=== PATIENT | female | born 1965 | race Caucasian/White ===

== ENCOUNTER → 2019-03-21 | Outpatient (REF) | payer MEDICARE ==
[2019-03-21 12:36] LABS: BASO % 0.4 % (0.0-1.0); EOS # 0.2 10^3/uL (0.0-0.50); EOS % 2.3 % (0.0-3.0); HEMATOCRIT 39.5 % (36.0-47.0); HEMOGLOBIN 12.7 g/dl (12.0-15.5); LYMPH # 2.9 10^3/uL (1.5-4.5); LYMPH % 29.8 % (24.0-44.0); MEAN CORPUSCULAR HEMOGLOBIN 28.1 pg (27.0-33.0); MEAN CORPUSCULAR HGB CONC 32.2 g/dl (32.0-36.5); MEAN CORPUSCULAR VOLUME 87.4 fl (80.0-96.0); MONO # 0.6 10^3/uL (0.0-0.8); MONO % 6.4 % (0.0-5.0); NEUTROPHILS % 60.5 % (36.0-66.0); PLATELET COUNT, AUTOMATED 269 10^3/uL (150-450); RED BLOOD COUNT 4.52 10^6/uL (4.00-5.40); WHITE BLOOD COUNT 9.9 10^3/uL (4.0-10.0)
[2019-03-21 13:15] LABS: ALBUMIN 3.4 GM/DL (3.2-5.2); ALT/SGPT 24 U/L (12-78); BILIRUBIN,TOTAL 0.1 MG/DL (0.2-1.0); BLOOD UREA NITROGEN 22 MG/DL (7-18); CALCIUM LEVEL 9.4 MG/DL (8.5-10.1); CARBON DIOXIDE LEVEL 27 MEQ/L (21-32); CHLORIDE LEVEL 107 MEQ/L (98-107); CHOLESTEROL LEVEL 81 MG/DL (<200); CHOLESTEROL RISK RATIO 2.793 (<5); CREATININE FOR GFR 0.87 MG/DL (0.55-1.30); FREE T4 1.02 NG/DL (0.76-1.46); GLOMERULAR FILTRATION RATE > 60.0 (>51); GLUCOSE, FASTING 169 MG/DL (70-100); HDL CHOLESTEROL 29 MG/DL (>40); LDL CHOLESTEROL 7 MG/DL (<100); MAGNESIUM LEVEL 2.1 MG/DL (1.8-2.4); NON-HDL-C 52 MG/DL; POTASSIUM SERUM 4.4 MEQ/L (3.5-5.1); SODIUM LEVEL 140 MEQ/L (136-145); TOTAL PROTEIN 7.4 GM/DL (6.4-8.2); TRIGLYCERIDES LEVEL 223 MG/DL (<150)
[2019-03-21 13:25] LABS: CREATININE, URINE 89.4 MG/DL; MALB URINE SIEMENS 51.6 MG/L; MAU/CREAT RATIO 57.7 MCG/MG (0.0-30.0)
[2019-03-21 14:07] LABS: HEMOGLOBIN A1c 8.7 %
== END ==
LOC: M SFHCPLAZ 08:59
PROVIDERS: ATTEND Nurse Practitioner Family
DX: E11.9 Type 2 diabetes mellitus without complications (principal); E78.5 Hyperlipidemia, unspecified; I10 Essential (primary) hypertension

== ENCOUNTER → 2019-04-17 | Outpatient (CLI) | payer MEDICARE ==
--- NOTE | 2019-04-20 15:26 | REPMRS ---
Patient History The patient states she has not had a clinical breast exam in over a year. Patient is postmenopausal. Family history of breast cancer at age 57 in sister, ovarian cancer at age 45 in sister. No Hormone Replacement Therapy 3D TOMOSYNTHESIS WAS PERFORMED. The [facility] lifetime risk for breast cancer is 16.3%. Digital Woman Screen Mammo: April 17, 2019 - Exam #: [id number] Bilateral CC and MLO view(s) were taken. Technologist: Radha Brown, Technologist Prior study comparison: August 2017, bilateral digital mammo screening bilat, performed at [facility]. FINDINGS: The breast tissue is heterogeneously dense. This may lower the sensitivity of mammography. There has been no change in the appearance of the mammogram from the prior studies. There is a moderate amount of residual fibroglandular tissue which is fairly symmetric. There is no interval development of dominant mass, areas of architectural distortion, or clustered microcalcification typical of malignancy. Assessment: BI-RADS/ACR category 1 mammogram. Negative Mammogram. Recommendation Routine screening mammogram in 1 year (for women over age 40). This mammogram was interpreted with the aid of an FDA-approved computer-aided dectection system. Electronically Signed By: Aric Crowley MD 04/20/19 [id number]
== END ==
LOC: M WHC 08:50 → EDUNIT# 09:30
PROVIDERS: ATTEND Nurse Practitioner Family
DX: Z12.31 Encounter for screening mammogram for malignant neoplasm of breast (principal); Z78.0 Asymptomatic menopausal state; Z80.3 Family history of malignant neoplasm of breast; Z80.41 Family history of malignant neoplasm of ovary

== ENCOUNTER → 2019-05-10 | Outpatient (CLI) | payer MEDICARE, MEDICAID ==
--- NOTE | 2019-05-15 09:34 | SLEEPHOME ---
DATE OF STUDY: 05/10/2019 ORDERED BY: GANGA Gold Diagnostic home sleep testing was performed due to concern for the obstructive sleep apnea syndrome. For testing, a nocturnal T3 respiratory monitoring device was used. Continuous record was made of pulse, oxygen saturation airflow, chest and abdominal strain and body. 9 hours and 59 minutes of data were reviewed. There were 8 hours and 34 minutes marked as time in bed. During the interval marked time in bed, there were 85 respiratory events identified of 10 seconds in duration or greater for a respiratory event index of 9.9. The events were primarily obstructive. Baseline pulse rate 66, pulse rate ranged 54-98. Baseline saturation 93%, saturations fell to 83%. Testing was performed in both the supine and nonsupine positions. IMPRESSION: Abnormal home sleep testing with repetitive respiratory events and oxygen desaturations to 83% with a respiratory event index of 9.9 is consistent with the obstructive sleep apnea syndrome. RECOMMENDATION: The patient should be referred for formal sleep evaluation.
== END ==
LOC: M SLEEP HO 09:44
PROVIDERS: ATTEND Nurse Practitioner Family
DX: G47.00 Insomnia, unspecified (principal)

== ENCOUNTER 2019-07-13 09:45 | Observation (INO) | payer MEDICARE, OTHER ==
[~2019-07-13] VITALS: Ht 152.4 cm; Wt 79.5 kg
[2019-07-13] MEDS ORDERED: BIMA01SOL OU (09:56)
[2019-07-13] MEDS ORDERED: METF10004 PO (09:56)
[2019-07-13] MEDS ORDERED: ELIQ5TAB PO (09:56)
[2019-07-13] MEDS ORDERED: TRES1INJ SC (09:56)
[2019-07-13] MEDS ORDERED: ATOR1TAB21 PO (09:56)
[2019-07-13] MEDS ORDERED: JARD1TAB3 PO (09:56)
[2019-07-13] MEDS ORDERED: LISI10TA4 PO (09:56)
--- NOTE | 2019-07-13 10:50 | REP ---
Portable chest, 10:38 a.m., single AP view with the the patient sitting: There are no comparisons. The lung phillips are clear. The cardiac size is normal. The dani, mediastinum, and skeletal structures are unremarkable. Impression: Negative portable chest. Electronically Signed by Aric Macias MD 07/13/2019 10:42 A
--- NOTE | 2019-07-13 10:52 | REP ---
CT of the brain without IV contrast: There are no comparisons. There is no hemorrhage. There is no edema, mass effect or midline shift. The cortical stripe is unremarkable. The ventricles are normal size and midline. The visualized paranasal sinuses and mastoids are clear. Impression: There is no hemorrhage, acute infarct or mass. Negative CT study of the brain. Electronically Signed by Aric Macias MD 07/13/2019 10:44 A
--- NOTE | 2019-07-13 11:00 | ECGEPIP ---
[facility] - ED Test Date: 2019-07-13 Pat Name: LANI WHITAKER Department: Room: - Gender: Female [employer]: JMelanie : 1965 Requested By: ZURDO Trujillo Order Number: [id number] Reading MD: Eleanor Aquino Measurements Intervals [place] Rate: 53 P: 33 SD: 127 QRS: 1 QRSD: 132 T: 39 QT: 487 QTc: 459 Interpretive Statements SINUS BRADYCARDIA RIGHT BUNDLE BRANCH BLOCK NO PRIOR Electronically Signed on 07-13-2019 11:00:07 EDT by Eleanor Aquino
[2019-07-13 11:14] LABS: BASO # 0.1 10^3/uL (0.0-0.2); BASO % 0.5 % (0.0-1.0); EOS # 0.2 10^3/uL (0.0-0.5); EOS % 1.8 % (0.0-3.0); HEMATOCRIT 42.2 % (36.0-47.0); HEMOGLOBIN 13.5 g/dl (12.0-15.5); LYMPH # 3.6 10^3/uL (1.5-5.0); LYMPH % 27.4 % (24.0-44.0); MEAN CORPUSCULAR HEMOGLOBIN 27.2 pg (27.0-33.0); MEAN CORPUSCULAR VOLUME 84.9 fl (80.0-96.0); MONO # 0.7 10^3/uL (0.0-0.8); MONO % 5.4 % (0.0-5.0); NEUTROPHILS # 8.4 10^3/uL (1.5-8.5); NEUTROPHILS % 64.4 % (36.0-66.0); PLATELET COUNT, AUTOMATED 222 10^3/uL (150-450); RED BLOOD COUNT 4.97 10^6/uL (4.00-5.40)
[2019-07-13 11:25] LABS: INR 1.25; PROTHROMBIN TIME 15.4 SECONDS (11.8-14.0)
[2019-07-13 11:26] LABS: PARTIAL THROMBOPLASTIN TIME 30.3 SECONDS (25.0-38.4)
[2019-07-13 11:45] LABS: ALBUMIN 3.6 GM/DL (3.2-5.2); ALT/SGPT 24 U/L (12-78); BILIRUBIN,DIRECT < 0.1 MG/DL (0.0-0.2); BILIRUBIN,TOTAL 0.2 MG/DL (0.2-1.0); BLOOD UREA NITROGEN 16 MG/DL (7-18); CALCIUM LEVEL 9.5 MG/DL (8.5-10.1); CARBON DIOXIDE LEVEL 28 MEQ/L (21-32); CHLORIDE LEVEL 104 MEQ/L (98-107); CK-MB VALUE MASS < 1.0 NG/ML (<3.6); CPK CREATINE PHOSPHOKINASE 39 U/L (26-192); GLOMERULAR FILTRATION RATE > 60.0 (>51); GLUCOSE, FASTING 132 MG/DL (70-100); MB/CK RELATIVE INDEX 2.56 (< OR =4); POTASSIUM SERUM 4.2 MEQ/L (3.5-5.1); SODIUM LEVEL 140 MEQ/L (136-145); TOTAL PROTEIN 7.4 GM/DL (6.4-8.2); TROPONIN I < 0.02 NG/ML (< 0.10)
[2019-07-13] MEDS ORDERED: ALEV220T22 PO (12:56)
[2019-07-13] MEDS ORDERED: SERT-138 PO (12:56)
[2019-07-13] MEDS ORDERED: RANI300T PO (12:56)
[2019-07-13] MEDS ORDERED: ZOLP10TA2 PO (12:56)
[2019-07-13] MEDS ORDERED: CLON0.5T8 PO (12:56)
[2019-07-13] MEDS ORDERED: ACETAMINOPHEN TAB 650MG DOSE (2X325MG) PO PRN (14:00)
[2019-07-13] MEDS ORDERED: GLUCOSE 4 GM CHEW TABLET PO PRN (14:00)
[2019-07-13] MEDS ORDERED: GLUCAGON FOR INJ 1 MG VIAL (J1610) SC PRN (14:00)
[2019-07-13] MEDS ORDERED: clonazePAM 0.5 MG TAB PO PRN (14:00)
[2019-07-13] MEDS ORDERED: DEXTROSE 50% 50 ML SYRINGE IV PRN (14:00)
[2019-07-13] MEDS ORDERED: MOM 30ML SUSPENSION UDC PO PRN (14:00)
--- NOTE | 2019-07-13 15:42 | REP ---
Duplex carotid sonography: History: TIA. Findings: Antegrade flow was observed in both vertebral arteries. Right carotid: The right common carotid artery is unremarkable. There is mild mixed plaquing in the bulb and proximal ICA on two-dimensional scanning. Color flow and spectral Doppler interrogation are unremarkable on the right. Velocity chart right carotid: PSV EDV Right CCA 88.0 cm/s Right ICA 75.0 16.0 Right ECA 57.0 Right ICA/CCA ratio normal 0.9. Impression: Less than 50% category narrowing in the right ICA by Doppler velocity criteria. Left carotid: The left common carotid artery shows minimal diffuse intimal thickening. There is mild mixed plaquing in the bulb and proximal ICA on two-dimensional scanning on the left side. Color flow and spectral Doppler interrogation are unremarkable on the left. Velocity chart left carotid: PSV EDV Left CCA 90.0 cm/s Left ICA 69.0 24.0 Left ECA 66.0 Left ICA/CCA ratio normal 0.8. Impression: Less than 50% category narrowing in the left ICA by Doppler velocity criteria. Electronically Signed by Babar Sullivan MD 07/13/2019 03:49 P
[2019-07-13 15:46] VITALS: BP 102/59
[2019-07-13] MEDS ORDERED: LORazepam 1 MG TAB PO STA (16:04)
--- NOTE | 2019-07-13 16:38 | HPEPDOC ---
[facility] Medical History & Physical Date of Admission Jul 13, 2019 Date of Service: Jul 13, 2019 Primary Care Physician: MAISHA BISHOP Attending Physician: АНДРЕЙ POLLARD MD History and Physical CHIEF COMPLAINT: Transient ischemic attack HISTORY OF PRESENT ILLNESS: Ashanti Mcneill is a 53 year old females who presents with weakness of the left face, arm and leg. Patient states symptoms began last week with 2 episodes while she was in the kitchen. She also states she had an additional episode last night before she came into the emergency department. Patient also had another episodes this afternoon which is classified as severe. Episodes typically last one minute with progressive decrease of symptoms overtime. She has associated headache, which she has started today. She rates headache as a 3/10 on the pain scale. The headache is located in the back of the head/cervical region. Patient also describes what seemed to be a globus sensation upon swallowing. She describes her symptoms to include dizziness, numbeness on both sides of face, weakness on the left side, tingling sensation on the left side of the body, slurred speech, forgetfulness, gait instability and right sided vision loss, which she states had been persistent from her stroke in 2009. She denies chest pain, shortness of breath, abdominal pain, nausea, vomiting, incontinence and loss of consciousness. 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 11/2015 DJD- cervical spine c5-7 11/2018 L knee- mild degenerative changes PAST SURGICAL HISTORY: Gall bladder removal 2014 SOCIAL HISTORY: Tobacco- smoked for 35 years. Smoked half a pack a day till February 2019. Smokes 2 cigarettes a day now Alcohol- None Drug use- None Caffeine- patient drinks 2 cups of coffee a day Other relevant social factors: FAMILY HISTORY: Father: 95 years, DM , heart problem, HTN Mother: 52 years, DM, heart problems, HTN Siblings: alive Children: daughter- alive 7 sisters, 1 son, 2 daughters- healthy 1 sister with ovarian cancer 1 sister with breast cancer ALLERGIES: Potassium- rashes Codiene- patient itches REVIEW OF SYSTEMS: Constitutional- Denies fever, chills and night sweats HEENT- headache but denies hearing loss, ringing sensation, Cardiovascular- denies chest pain on palpation Respiratory- denies shortness of breath or wheezing Gastrointestinal- denies nausea, vomiting, diarrhea, constipation or abdominal pain Musculoskeletal- weakness in the left side of the upper and lower extremities, Neurological- numbness and tingling sensation on the left side of the upper and lower extremities, weakness on the left side, slurring of speech and globus sensation Endocrine- denies polyuria, polydipsia, polyphagia Genirourinary- denies hematuria or dysuria Psychology- anxiety but no depression HOME MEDICATIONS: Please see below. PHYSICAL EXAMINATION: Vital signs: Temperature 97.8, pulse 52, respiratory rate 18, blood pressure 100/61, pulse oximetry 99 % on room air General- alert, oriented to person, place and time HEENT- Normacephalic, atraumatic, PERRLA, disc margins sharp, fundi without hemorrhages or exudate. External ear canals patent, TM with nonprotruding , tonsils 2 + without exudates, Neck- supple without lymphadenopathy Respiratory: thorax symmetric with good expansion, lungs clear with no rales or rhonchi, no crackles Cardiovascular- normal s1 and s2, without s3 and s3, no murmur, rubs or clicks Abdominal- no present bowel sounds, nondistended, no tenderness on palpation, soft, no masses noted Extremities- muscle strength (5/5) on right side of upper and lower extremities, muscle strength 4/5 on left side of upper and lower extremities, radial, femoral and pedal pulses are palatable bilaterallu Neurology- Normal Cranial nerves 1-12, heel to samuels test was negative. finger to nose exam was negative, reflex 2/4 bilaterally Skin- no ulcers, rashes evident on skin, LABORATORY DATA: See below. IMAGING: MICROBIOLOGY: Please see below. Assessment and plan TIA- Head CT came back negative. MRI and MRA ordered to detect any potential ischemic cause of symptoms. MRA focuses on the blood vessels with potential detection of clot formation. Neurochecks ordered Q4H to assess neurological impairment. Monitor Blood pressure. Also ordered Echocardiography and carotid ultrasound. Patient maintained on Eliquis 5 mg PO BID daily. Since patient is chronically on Eliquis, likeliness of patient having a thrombic clot low. Patient also prescribed 81 mg aspirin. Telemetry ordered. Monitor patient due to TIA/stroke symptoms as patient can go into paroxysmal atrial fibrillation with possible thrombus formation. Patient is also bradycardic. History of CVA- Residual right sided weakness and eye loss from stroke in 2009. Patient is on atorvastatin 20 mg PO daily. Will start aspirin 81mg Diabetes Mellitus type 2- Fasting glucose is 132 H. Hold home medication. Patient given 18 units of Tresiba 200 u/ml nightly along with sliding scale of insulin lispro. Anxiety/Depression- continue home medication Hypertension- continue patients home lisinopril. GERD- continue patients home ranitidine Vital Signs Vital Signs Date Time Temp Pulse Resp B/P (MAP) Pulse Ox O2 Delivery O2 Flow Rate FiO2 07/13/19 13:10 52 18 99 Room Air 07/13/19 13:00 100/61 (74) 07/13/19 09:46 97.8 Laboratory Data Labs 24H Laboratory Tests 2 07/13/19 11:01: Immature Granulocyte % (Auto) 0.5, White Blood Count 13.0H, Red Blood Count 4.97, Hemoglobin 13.5, Hematocrit 42.2, Mean Corpuscular Volume 84.9, Mean Corpuscular Hemoglobin 27.2, Mean Corpuscular Hemoglobin Concent 32.0, Red Cell Distribution Width 13.0, Platelet Count 222, Neutrophils (%) (Auto) 64.4, Lymphocytes (%) (Auto) 27.4, Monocytes (%) (Auto) 5.4H, Eosinophils (%) (Auto) 1.8, Basophils (%) (Auto) 0.5, Neutrophils # (Auto) 8.4, Lymphocytes # (Auto) 3.6, Monocytes # (Auto) 0.7, Eosinophils # (Auto) 0.2, Basophils # (Auto) 0.1, Nucleated Red Blood Cells % (auto) 0.0, Prothrombin Time 15.4H, Prothromb Time International Ratio 1.25, Activated Partial Thromboplast Time 30.3, Anion Gap 8, Glomerular Filtration Rate > 60.0, Calcium Level 9.5, Aspartate Amino Transf (AST/SGOT) 9, Alanine Aminotransferase (ALT/SGPT) 24, Alkaline Phosphatase 165H, Total Bilirubin 0.2, Direct Bilirubin < 0.1, Total Creatine Kinase 39, Creatine Kinase MB < 1.0, Creatine Kinase MB Relative Index 2.56, Troponin I < 0.02, Total Protein 7.4, Albumin 3.6, Albumin/Globulin Ratio 0.95L CBC/BMP Laboratory Tests 07/13/19 11:01 Red Blood Count 4.97, Mean Corpuscular Volume 84.9, Mean Corpuscular Hemoglobin 27.2, Mean Corpuscular Hemoglobin Concent 32.0, Red Cell Distribution Width 13.0, Neutrophils (%) (Auto) 64.4, Lymphocytes (%) (Auto) 27.4, Monocytes (%) (Auto) 5.4 H, Eosinophils (%) (Auto) 1.8, Basophils (%) (Auto) 0.5, Neutrophils # (Auto) 8.4, Lymphocytes # (Auto) 3.6, Monocytes # (Auto) 0.7, Eosinophils # (Auto) 0.2, Basophils # (Auto) 0.1 Home Medications Scheduled Apixaban (Eliquis) 5 Mg Tablet, 5 MG PO BID Atorvastatin Calcium (Atorvastatin Calcium) 20 Mg Tablet, 40 MG PO QHS Bimatoprost (Lumigan) 0.01% 2.5ML Drops, 1 DROP OU QHS Empagliflozin (Jardiance) 25 Mg Tablet, 25 MG PO DAILY Famotidine (Famotidine) 20 Mg Tablet, 40 MG PO QHS Insulin Degludec (Tresiba Flextouch U-200) 200 Unit/1 Ml Insuln.pen, 35 UNIT SC QHS Lisinopril (Lisinopril) 10 Mg Tablet, 10 MG PO DAILY Metformin HCl (Metformin HCl) 1,000 Mg Tablet, 1,000 MG PO BIDWM Sertraline HCl (Sertraline HCl) 100 Mg Tablet, 100 MG PO DAILY Scheduled PRN Clonazepam (Clonazepam) 0.5 Mg Tablet, 0.5 MG PO DAILY PRN for ANXIETY Zolpidem Tartrate (Zolpidem Tartrate) 10 Mg Tablet, 5 MG PO QHS PRN for SLEEP CAN TAKE UP TO 10MG PRN Allergies Coded Allergies: codeine (Verified Allergy, Mild, ITCH, 07/13/19) potassium (Verified Allergy, Mild, ITCH, 07/13/19) A-FIB/CHADSVASC A-FIB History Current/History of A-Fib/PAF?: No GME ATTESTATION GME ATTESTATION My faculty preceptor for this patient encounter was physically present during the encounter and was fully available. All aspects of the patient interview, examination, medical decision making process, and medical care plan development were reviewed and approved by the faculty preceptor. The faculty preceptor is aware and concurs with the plan as stated in the body of this note and will attest to such by his/her cosignature. ATTENDING NOTE I, Андрей Pollard, have independently examined this patient and performed my own physical exam, as well as reviewed the documentation and edited where necessary. I have discussed in detail with the resident / student the findings and plan of treatment as documented by the resident / student and edited their note. I agree with their findings and treatment plan and have edited their documentation. I will continue to follow the patient during this hospital stay. CLOTILDE YING Jul 13, 2019 16:38 АНДРЕЙ POLLARD MD Jul 18, 2019 17:46
[2019-07-13] MEDS ORDERED: SLF 3 ML SYR IV PRN (17:15)
[2019-07-13] MEDS: HumaLOG INSULIN (NovoLOG) PER UNIT SC SCH ×2 (17:23→21:00)
--- NOTE | 2019-07-13 17:32 | REPVR ---
PROCEDURE INFORMATION: Exam: MR Angiogram Head Without Contrast, Arteries Exam date and time: 07/13/2019 5:12 PM Clinical history: 53 years old, female; Numbness; Additional info: TIA TECHNIQUE: Imaging protocol: MR angiogram head without contrast. Exam focused on the arteries. COMPARISON: CT Head without contrast 07/13/2019 10:27 AM FINDINGS: Right internal carotid artery: Unremarkable. Intracranial segment is patent with no significant stenosis. No aneurysm. Right anterior cerebral artery: The right A1 segment is congenitally hypoplastic or absent. The remaining right anterior cerebral artery is unremarkable. Right middle cerebral artery: Unremarkable. No occlusion or significant stenosis. No aneurysm. Right posterior cerebral artery: Unremarkable. No occlusion or significant stenosis. No aneurysm. Right vertebral artery: Unremarkable. No occlusion or significant stenosis. No aneurysm. Left internal carotid artery: Unremarkable. Intracranial segment is patent with no significant stenosis. No aneurysm. Left anterior cerebral artery: Unremarkable. No occlusion or significant stenosis. No aneurysm. Left middle cerebral artery: Unremarkable. No occlusion or significant stenosis. No aneurysm. Left posterior cerebral artery: Unremarkable. No occlusion or significant stenosis. No aneurysm. Left vertebral artery: Unremarkable. No occlusion or significant stenosis. No aneurysm. Basilar artery: Unremarkable. No occlusion or significant stenosis. No aneurysm. IMPRESSION: No acute abnormality. Electronically signed by: Hilario Wolff On 07/13/2019 17:32:31 PM
--- NOTE | 2019-07-13 17:36 | REPVR ---
PROCEDURE INFORMATION: Exam: MR Head Without Contrast Exam date and time: 07/13/2019 5:12 PM Clinical history: 53 years old, female; Numbness / parasthesia; Left; Additional info: TIA TECHNIQUE: Imaging protocol: MR of the head without contrast. COMPARISON: CT Head without contrast 07/13/2019 10:27 AM The report from the previous exam was not immediately available. FINDINGS: Brain: No restricted diffusion is seen to suggest acute infarction. There is no acute intracranial hemorrhage, cerebral edema, or midline shift. Age-related cerebral and cerebellar substance loss is present. Chronic encephalomalacia is noted at the left parieto-occipital junction. Scattered increased T2 and FLAIR signal within the periventricular and subcortical white matter is present. This is nonspecific but likely related to advanced for age chronic microangiopathic ischemic change. Ventricles: There is no hydrocephalus. Incidental note is made of a 3.3 x 2.6 x 2.8 cm cyst of the vellum interpositum. Bones/joints: Unremarkable. Soft tissues: Unremarkable. Sinuses: Normal as visualized. No acute sinusitis. Mastoid air cells: Normal as visualized. No mastoid effusion. Orbits: Unremarkable. IMPRESSION: 1. No acute intracranial abnormality. 2. Chronic findings as discussed above. Electronically signed by: Hilario Wolff On 07/13/2019 17:36:19 PM
[2019-07-13 20:00] VITALS: BP 103/61
[2019-07-13] MEDS: FAMOTIDINE 20 MG TAB PO SCH (20:59)
[2019-07-13] MEDS: LEVEMIR (INSULIN DETEMIR) 1 UNITS/0.01ML SC SCH (20:59)
[2019-07-13] MEDS: DOCUSATE SODIUM 100 MG CAP PO SCH (21:00)
[2019-07-13] MEDS: APIXABAN 5 MG TAB (ELIQUIS) PO SCH (21:00)
[2019-07-13] MEDS: SLF 3 ML SYR IV SCH (21:01)
[2019-07-13 23:59] VITALS: BP 109/63
[2019-07-14 04:00] VITALS: BP 104/61
[2019-07-14 05:41] LABS: HEMATOCRIT 40.9 % (36.0-47.0); HEMOGLOBIN 12.9 g/dl (12.0-15.5); MEAN CORPUSCULAR HEMOGLOBIN 26.4 pg (27.0-33.0); MEAN CORPUSCULAR HGB CONC 31.5 g/dl (32.0-36.5); MEAN CORPUSCULAR VOLUME 83.6 fl (80.0-96.0); PLATELET COUNT, AUTOMATED 209 10^3/uL (150-450); RED BLOOD COUNT 4.89 10^6/uL (4.00-5.40); WHITE BLOOD COUNT 11.9 10^3/uL (4.0-10.0)
[2019-07-14] MEDS: SLF 3 ML SYR IV SCH ×3 (05:41→20:55)
[2019-07-14 05:58] LABS: BLOOD UREA NITROGEN 19 MG/DL (7-18); CALCIUM LEVEL 9.2 MG/DL (8.5-10.1); CARBON DIOXIDE LEVEL 27 MEQ/L (21-32); CHLORIDE LEVEL 106 MEQ/L (98-107); CREATININE FOR GFR 0.91 MG/DL (0.55-1.30); GLOMERULAR FILTRATION RATE > 60.0 (>51); GLUCOSE, FASTING 113 MG/DL (70-100); POTASSIUM SERUM 4.1 MEQ/L (3.5-5.1); SODIUM LEVEL 140 MEQ/L (136-145)
--- NOTE | 2019-07-14 06:22 | ECHO ---
DATE OF STUDY: 07/13/2019 REFERRING PHYSICIAN: Neptali Cheatham INDICATION: Transient ischemic attack (TIA). HEIGHT: 152 cm WEIGHT: 81 kg DIMENSIONS: IVS: 1.1 LV: 4.2 LVPW: 1.1 LA: 3.7 Aorta: 2.7 IVC: 1.7 Mitral E wave velocity: 114 A wave: 131 E prime septal: 5.5 E prime lateral: 7.6 FINDINGS: The study is of good technical quality. The patient is in sinus rhythm. Left ventricle is normal size and systolic function. Estimated left ventricle ejection fraction (LVEF) 60-65%. Right ventricle is also normal size and systolic function. Both atria appear normal. All four cardiac valves were reasonably well seen and appear normal. No pericardial effusion is noted. Inferior vena cava is normal size. Aortic root and aortic arch appear normal. Doppler interrogation reveals no significant aortic valvular disease. There is trace mitral and tricuspid insufficiency. Calculated pulmonary artery pressure is within normal limits. Pulmonic valve is functionally competent. Mitral inflow pattern and tissue Doppler imaging of mitral annulus reveal grade 1 diastolic dysfunction. CONCLUSIONS: 1. Study is of good technical quality. 2. Normal LV size and systolic function, grade 1 diastolic dysfunction. 3. No significant valvular disease. 4. Normal central venous pressure and likely normal pulmonary artery pressure. COMMENT: Subacute bacterial endocarditis (SBE) prophylaxis is not recommended. No obvious abnormality to explain TIA.
[2019-07-14 07:30] VITALS: BP 115/59
[2019-07-14] MEDS ORDERED: ATORVASTATIN 20 MG TAB PO SCH (09:00)
[2019-07-14] MEDS: ASPIRIN 81 MG ENTERIC TAB PO SCH (09:08)
[2019-07-14] MEDS: APIXABAN 5 MG TAB (ELIQUIS) PO SCH ×2 (09:08→20:54)
[2019-07-14] MEDS: SERTRALINE 100 MG TAB PO SCH (09:08)
[2019-07-14] MEDS: LISINOPRIL 10 MG TAB PO SCH (09:08)
[2019-07-14] MEDS: DOCUSATE SODIUM 100 MG CAP PO SCH ×2 (09:09→20:54)
[2019-07-14] MEDS: HumaLOG INSULIN (NovoLOG) PER UNIT SC SCH ×4 (09:09→20:55)
--- NOTE | 2019-07-14 09:55 | IPNPDOC ---
Subjective Date Seen The patient was seen on 07/14/19. Subjective Chief Complaint/HPI fEELS ok this am. She has history of Stroke in 2010 that involved Left occipital lobe and created a visual defect. Hx of Left Renal infarct 06/2018. Initial imaging was c/w pyelo and abscess vs infarct, but cultures were negative and was concluded that she has suffered renal infarct. Suspicion for Afib existed but not confirmed. Eliquis started at that time. Constitutional: Denies: Chills ENT: Denies: Head Aches Pulmonary: Denies: Dyspnea, Cough Cardiovascular: Denies: Chest Pain, Palpitations Gastrointestinal: Denies: Nausea, Abdominal Pain Genitourinary: Denies: Dysuria Hematologic: Denies: Bruising Musculoskeletal: Denies: Neck Pain Neurological: Denies: Weakness, Numbness (ephemeral paresthesias that brought her to ER have not recurred.) Psych: Reports: Mood Normal Objective Physical Examination General Exam: Positive: Alert, Cooperative, No Acute Distress Eye Exam: Positive: PERRLA ENT Exam: Positive: Atraumatic Neck Exam: Positive: Supple; Negative: thyromegaly Chest Exam: Positive: Clear to auscultation, Normal air movement Heart Exam: Positive: Bradycardic, Regular Rhythm Telemetry: Positive: No significant arrhythmia Abdomen Exam: Positive: Normal bowel sounds, Soft; Negative: Tenderness Extremity Exam: Negative: Clubbing, Edema Skin Exam: Negative: Rash Neuro Exam: Positive: Normal Speech, Strength at 5/5 X4 ext, Sensation Intact Psych Exam: Positive: Mental status NL Assessment /Plan Problems (1) TIA (transient ischemic attack) Status: Acute Response to Treatment: Improving Problem Specific Plan: Consult Specialist Problem Text: described recurrent left arm and face parethesias that were very brief. no recurrence since admission. Dr. Dahl has been consulted. (2) Diabetes Status: Chronic Response to Treatment: Stable Problem Text: A1c was 8.7 in March 2019.. Home regimen includes Metformin 1000mg bid, Jardiance 25mg daily, and Tresiba 35 units qhs. (3) Dyslipidemia associated with type 2 diabetes mellitus Status: Chronic Response to Treatment: Stable Problem Text: had been on lipitor 20, with this episode will increase to 40mg qhs. (4) Post traumatic stress disorder (PTSD) Status: Chronic Response to Treatment: Stable Problem Text: treatment has included sertraline 100mg daily, Klonopin 0.5mg qhs, and Zolpidem 10mg qhs prn. (5) LONNIE (obstructive sleep apnea) Status: Chronic Problem Text: She had home sleep study with AHI of 9.9 and has been referred to Pulmonary for additional eval. Not on CPAP at this time. (6) Tobacco abuse Status: Chronic Response to Treatment: Stable Problem Text: admits to 2-3 cigs/day. Lives with a smoker. Knows that she needs to quit. Plan/VTE VTE Prophylaxis Ordered?: Yes VS, I&O, 24H, Fishbone Vital Signs/I&O Vital Signs Date Time Temp Pulse Resp B/P (MAP) Pulse Ox O2 Delivery O2 Flow Rate FiO2 07/14/19 09:08 115/59 07/14/19 07:30 98.4 61 18 100 07/13/19 15:25 Room Air I&O- Last 24 Hours up to 6 AM 07/14/19 06:00 Intake Total 870 ml Output Total 0 ml Balance 870 ml Laboratory Data 24H LABS Laboratory Tests 2 07/13/19 11:01: Immature Granulocyte % (Auto) 0.5, White Blood Count 13.0H, Red Blood Count 4.97, Hemoglobin 13.5, Hematocrit 42.2, Mean Corpuscular Volume 84.9, Mean Corpuscular Hemoglobin 27.2, Mean Corpuscular Hemoglobin Concent 32.0, Red Cell Distribution Width 13.0, Platelet Count 222, Neutrophils (%) (Auto) 64.4, Lymphocytes (%) (Auto) 27.4, Monocytes (%) (Auto) 5.4H, Eosinophils (%) (Auto) 1.8, Basophils (%) (Auto) 0.5, Neutrophils # (Auto) 8.4, Lymphocytes # (Auto) 3.6, Monocytes # (Auto) 0.7, Eosinophils # (Auto) 0.2, Basophils # (Auto) 0.1, Nucleated Red Blood Cells % (auto) 0.0, Prothrombin Time 15.4H, Prothromb Time International Ratio 1.25, Activated Partial Thromboplast Time 30.3, Anion Gap 8, Glomerular Filtration Rate > 60.0, Calcium Level 9.5, Aspartate Amino Transf (AST/SGOT) 9, Alanine Aminotransferase (ALT/SGPT) 24, Alkaline Phosphatase 165H, Total Bilirubin 0.2, Direct Bilirubin < 0.1, Total Creatine Kinase 39, Creatine Kinase MB < 1.0, Creatine Kinase MB Relative Index 2.56, Troponin I < 0.02, Total Protein 7.4, Albumin 3.6, Albumin/Globulin Ratio 0.95L 07/14/19 05:10: Nucleated Red Blood Cells % (auto) 0.0, Anion Gap 7L, Glomerular Filtration Rate > 60.0, Calcium Level 9.2, Blood Urea Nitrogen 19H, Creatinine 0.91, Sodium Level 140, Potassium Level 4.1, Chloride Level 106, Carbon Dioxide Level 27 CBC/BMP Laboratory Tests 07/13/19 11:01 Red Blood Count 4.97, Mean Corpuscular Volume 84.9, Mean Corpuscular Hemoglobin 27.2, Mean Corpuscular Hemoglobin Concent 32.0, Red Cell Distribution Width 13.0, Neutrophils (%) (Auto) 64.4, Lymphocytes (%) (Auto) 27.4, Monocytes (%) (Auto) 5.4 H, Eosinophils (%) (Auto) 1.8, Basophils (%) (Auto) 0.5, Neutrophils # (Auto) 8.4, Lymphocytes # (Auto) 3.6, Monocytes # (Auto) 0.7, Eosinophils # (Auto) 0.2, Basophils # (Auto) 0.1 07/14/19 05:10 Red Blood Count 4.89, Mean Corpuscular Volume 83.6, Mean Corpuscular Hemoglobin 26.4 L, Mean Corpuscular Hemoglobin Concent 31.5 L, Red Cell Distribution Width 12.9, Calcium Level 9.2 Anuel Howard MD Jul 14, 2019 09:55
[2019-07-14 11:29] VITALS: BP 103/59
[2019-07-14 16:00] VITALS: BP 100/59
[2019-07-14] MEDS ORDERED: LIDOCAINE VISCOUS 2% SOLN 15ML UDC As Ordered ONE (17:48)
[2019-07-14] MEDS ORDERED: CETACAINE SPRAY 5GM As Ordered ONE (17:48)
[2019-07-14] MEDS ORDERED: PROPOFOL 200 MG/20 ML VIAL As Ordered ONE ×2 (18:16→18:32)
[2019-07-14] MEDS ORDERED: ONDANSETRON 4MG/2ML VIAL (J2405) IV PRN (19:00)
[2019-07-14] MEDS ORDERED: fentaNYL 100 MCG/2 ML INJECTION (J3010) IV PRN (19:00)
[2019-07-14] MEDS ORDERED: LR 1,000 ML IV SCH (19:00)
--- NOTE | 2019-07-14 19:23 | CR ---
DATE OF CONSULTATION: 07/14/2019 REFERRING PHYSICIAN: Dr. Anuel Howard REASON FOR CONSULTATION: Episodes of left-sided body numbness. HISTORY OF PRESENT ILLNESS: Ashanti Rachel is a 53-year-old woman who had left parietal and occipital ischemic stroke in 2009 when she was living in [place], [place]. She had left renal infarct and pyelonephritis with abscess, which was drained in 2018, and she was started on Eliquis in addition to her aspirin. She has been on aspirin since her ischemic stroke, and Eliquis was added in 2018. History was obtained from the patient's daughter, who was present in the room. According to the patient's daughter, she developed new symptoms a week ago. The patient moved from [place] to [place] in February 2019. She was at her baseline state of health until a week ago, when she developed left-sided facial and lip numbness and tingling, which spread to her left arm and leg. Daughter is not sure if she had any headache that day. There was no weakness. She did not notice any slurred speech, although the patient felt that her tongue was numb on the left side. She came to the emergency department yesterday, as she had a 5/10 occipital headache since 07/12/2019. Headache was radiating to her neck. Her primary care physician advised her to come to the emergency department. Yesterday, she had two more episodes of left-sided numbness when her headache was still going on. She had three total episodes in last 1 week, and they lasted anywhere between 5 seconds up to 1 or 2 minutes. There are no reports of back pains, seizures, dysphagia, dysarthria, diplopia, falls, or loss of consciousness. PAST MEDICAL HISTORY: 1. Left occipital and parietal ischemic stroke in 2009. 2. Type 2 diabetes. 3. Dyslipidemia. 4. Tobacco abuse. 5. Suspicion for glaucoma. 6. Panic attacks without agoraphobia. 7. 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 8. Colonoscopy. 9. Cervical degenerative disc disease. 10. Arthritis of left knee. 11. Cholecystectomy. 12. History of vertigo. SOCIAL HISTORY: She has smoked for 35 years, half pack per day, and since February 2019 she has cut down to three cigarettes a day. She denies alcohol or illicit drugs. FAMILY HISTORY: Both parents had diabetes, heart disease, and hypertension. One sister with ovarian cancer and other sister with breast cancer. ALLERGIES: POTASSIUM, CODEINE. REVIEW OF SYSTEMS: All systems were reviewed with the patient's daughter and were found to be noncontributory except as mentioned in history of present illness. HOME MEDICATIONS: - Eliquis 5 mg by mouth twice a day - Lipitor 20 mg by mouth daily - Jardiance 25 mg by mouth daily -lisinopril 10 mg by mouth daily - metformin 1000 mg by mouth twice a day - Zantac 300 grams by mouth at bedtime - Zoloft 100 mg by mouth daily - Klonopin 0.5 mg by mouth daily as needed - Ambien 10 mg half a tablet by mouth at bedtime as needed - lisinopril 10 mg by mouth daily - insulin Tresiba 35 units subcutaneous daily - Lumigan eyedrops one drop each eye once a day - Lipitor 20 mg by mouth daily - aspirin 81 mg by mouth daily - Eliquis 5 mg by mouth twice a day PHYSICAL EXAMINATION: Temperature 97.0, pulse 53, respiratory rate 18, blood pressure 100/59, 96% saturation on room air. HEART: Regular rate and rhythm. LUNGS: Clear to auscultation. ABDOMEN: Soft, nontender, nondistended. No pedal edema. No musculoskeletal abnormalities. No rash. No signs of meningeal irritation. The patient is awake, alert, oriented to time, place and person with normal speech. Extraocular muscles are intact. No facial weakness, and she is able to move all four extremities. Strength is 5/5 in all 4 limbs. She has normal sensations throughout. DTRs are 3+ in arms and legs. Normal bilateral cerebellar testing. Gait is normal. DIAGNOSTIC STUDIES: MRI brain reportedly showed old left parietal and occipital ischemic stroke with 3.3 cm arachnoid cyst in vellum interpositum. Scans were reviewed. MRA brain is normal, and carotid ultrasound showed less than 50% bilateral carotid artery stenosis. ASSESSMENT: 1. Possible complex migraine with occipital headache and left-sided tingling and numbness. 2. There is concern for transient ischemic attack, although it would be unusual for it to cause only sensory symptoms three times in same vascular distribution, especially when the patient is taking aspirin, Eliquis, and Lipitor. 3. Occipital neuralgia. 4. Left parietal and occipital old stroke in 2009 and left renal infarct, pyelonephritis, and abscess. PLAN: 1. Transesophageal echocardiogram. 2. We should get records from [place], [place], if they had done blood tests for coagulopathy and vasculopathy before she was put on Eliquis. Number of blood tests for these reasons currently may not be accurate was she is actively taking Eliquis, except we may be able to do genetic testing for factor V Leiden and prothrombin [id number] mutation. Check B12, B1, copper, SPEP. 3. Continue aspirin 81 mg by mouth daily, Eliquis 5 mg by mouth twice a day, and Lipitor 20 mg by mouth daily. Check with primary team if Lisinopril is the cause of chronic dry cough. 4. Follow with our office in 2-4 weeks after hospital discharge for electromyogram (EMG) nerve conduction study of left arm and leg. She can also have peripheral neuropathy with left carpal tunnel syndrome. MTDD
[2019-07-14 20:00] VITALS: BP 103/57
[2019-07-14] MEDS: FAMOTIDINE 20 MG TAB PO SCH (20:54)
[2019-07-14] MEDS: LEVEMIR (INSULIN DETEMIR) 1 UNITS/0.01ML SC SCH (20:55)
[2019-07-14] MEDS ORDERED: AMITRIPTYLINE 10 MG TAB PO SCH (21:00)
[2019-07-15] VITALS: BP 99/55
[2019-07-15 04:00] VITALS: BP 121/62
[2019-07-15] MEDS: SLF 3 ML SYR IV SCH (06:05)
[2019-07-15 06:27] LABS: HEMATOCRIT 41.8 % (36.0-47.0); HEMOGLOBIN 13.3 g/dl (12.0-15.5); MEAN CORPUSCULAR HEMOGLOBIN 26.2 pg (27.0-33.0); MEAN CORPUSCULAR HGB CONC 31.8 g/dl (32.0-36.5); MEAN CORPUSCULAR VOLUME 82.4 fl (80.0-96.0); PLATELET COUNT, AUTOMATED 221 10^3/uL (150-450); RED BLOOD COUNT 5.07 10^6/uL (4.00-5.40); WHITE BLOOD COUNT 12.2 10^3/uL (4.0-10.0)
[2019-07-15 06:51] LABS: BLOOD UREA NITROGEN 21 MG/DL (7-18); CALCIUM LEVEL 9.2 MG/DL (8.5-10.1); CARBON DIOXIDE LEVEL 28 MEQ/L (21-32); CHLORIDE LEVEL 106 MEQ/L (98-107); CREATININE FOR GFR 0.93 MG/DL (0.55-1.30); GLOMERULAR FILTRATION RATE > 60.0 (>51); GLUCOSE, FASTING 125 MG/DL (70-100); POTASSIUM SERUM 4.4 MEQ/L (3.5-5.1); SODIUM LEVEL 140 MEQ/L (136-145); TOTAL PROTEIN 7.3 GM/DL (6.4-8.2)
[2019-07-15 07:33] VITALS: BP 104/65
[2019-07-15] MEDS ORDERED: FLUBLOK(EGG FREE)(QUAD)INFLUENZA VACC 0.5ML SYRINGE (90682)18YRS&OLDER IM ONE (09:00)
[2019-07-15 09:13] VITALS: BP 104/65
[2019-07-15] MEDS: SERTRALINE 100 MG TAB PO SCH (09:13)
[2019-07-15] MEDS: DOCUSATE SODIUM 100 MG CAP PO SCH (09:13)
[2019-07-15] MEDS: ASPIRIN 81 MG ENTERIC TAB PO SCH (09:13)
[2019-07-15] MEDS: APIXABAN 5 MG TAB (ELIQUIS) PO SCH (09:13)
[2019-07-15] MEDS: LISINOPRIL 10 MG TAB PO SCH (09:13)
[2019-07-15] MEDS: HumaLOG INSULIN (NovoLOG) PER UNIT SC SCH (09:14)
[2019-07-15] MEDS ORDERED: ATOR1TAB21 PO (09:32)
[2019-07-15] MEDS ORDERED: FAMO20TA PO (09:32)
--- NOTE | 2019-07-15 10:28 | T-ECHO ---
DATE OF PROCEDURE: 07/14/2019 REFERRING PHYSICIAN: Anuel Howard MD PROCEDURE PERFORMED: Transesophageal echocardiogram with bubble study. INDICATION: Unexplained stroke. PREPROCEDURE DIAGNOSIS: Unexplained stroke. POSTPROCEDURE DIAGNOSIS: Unexplained stroke, normal transesophageal echocardiogram, bubble study negative. PROCEDURE PERFORMED BY: Jesse Ferro MD CUSTOM FRAME ASSEMBLER: None. FINDINGS: Normal transesophageal echocardiogram. Negative bubble study. INTRAVENOUS (IV) SEDATION: The patient received intravenous (IV) propofol her JD EDWARDS DEVELOPER. COMPLICATIONS: None. DESCRIPTION OF PROCEDURE: Procedure description: Rhythm was sinus. Esophageal intubation was accomplished with difficulty performed by Dr. Ferro using a [place] three-dimensional transesophageal echocardiogram probe. The left and right ventricles appeared normal in size and systolic function. The atria did not appear to be enlarged. No mass or thrombi or spontaneous echocontrast were seen within the atria or the atrial appendages. Atrial septum was intact anatomically and by color flow Doppler. A bubble study was performed times two using 2 mL of propofol mixed with 1 mL of air and 7 mL of normal saline which was transferred back and forth between two 10-mL syringes, interconnected by a 3-way stopcock. The patient was sedated to the point where she could not follow verbal commands. However, she was coughing periodically during the procedure, including during one of the bubble studies. No bubbles were seen crossing into the left side of the heart early. All the cardiac valves were structuring and functioning normal. Aortic valve was three-cuspid. Trace pulmonic regurgitation, very mild tricuspid regurgitation, and very mild mitral regurgitation were present and within physiological limits. No aortic regurgitation. No pericardial effusion. Distal aortic arch and descending thoracic aorta appeared normal. CONCLUSIONS: 1. Normal transesophageal echocardiogram. 2. Negative bubble study. [facility]
--- NOTE | 2019-07-15 16:51 | DSES ---
DATE OF ADMISSION: 07/13/2019 DATE OF DISCHARGE: 07/15/2019 Ms. Rachel was admitted from emergency department (ED) after presenting with complaint of several episodes of left neck and face tingling. She has a history of stroke involving the right parietal circulation, which occurred in 2009, involving left occipital lobe and included a visual defect. In June 2018, she suffered a left renal infarction. At that time, she did wear a Holter monitor for a week, which do not show any dysrhythmia. Dr. Dahl has requested a transesophageal echocardiogram, which was performed yesterday evening by Dr. Ferro and did not show any abnormalities, specifically no patent foramen ovale (PFO), but because of the infarction to the left occipital lobe and left renal infarction, it was presumed that there was an embolic source. Atrial fibrillation was presumed to be present or some equivalent risk factor; therefore she was placed on Eliquis at the time of her renal infarction and remains on 5 mg twice a day. The patient's chronic problems include this episode, which is interpreted as a transient ischemic attack (TIA), but could be caused by other problems, such as complex migraine or nerve entrapment at the level of her cervical spine. These differentials be pursued further by Dr. Dahl with outpatient testing. Also, diabetes mellitus type 2, a complex regimen including Tresiba insulin, Giardia is 25 daily, metformin 1000 mg twice a day; hypertension, dyslipidemia. So she has type 2 diabetes, post-traumatic stress disorder, obstructive sleep apnea. She has been referred to pulmonary for additional evaluation, but she is not continuous positive airway pressure (C-PAP) at this time. She had a home sleep study with a ApneaHypopnea Index (AHI) of 9.9 and history of chronic tobacco abuse, only smoking 2 or 3 cigarettes per day, but she lives with a smoker and acknowledges a need to quit. Pending at this time is laboratory tests ordered by Dr. Dahl, specifically plasma copper levels, factor II mutation, factor V, lupus anticoagulant. Hemoglobin was normal at 13.3 at the time of discharge, a slightly elevated white count of 12.2. Kidney function: Creatinine 0.93 and BUN 21. Serum protein electrophoresis was also pending at the time of discharge. MRI did not show any new findings, but did confirm presence of previous stroke involving left parietal occipital junction described as an area of encephalomalacia on the report. DISCHARGE DIAGNOSES: 1. Transient neurologic disturbance, transient ischemic attack (TIA) versus cervical spine nerve entrapment versus complex migraine. 2. Dyslipidemia. 3. Post-traumatic stress disorder. 4. Diabetes mellitus type 2, insulin requiring long-term use of insulin and long-term use of anticoagulation. 5. History of infarction, left kidney. PLAN: She will return home. Activity as tolerated. Diet: Carbohydrate controlled diet in light of her diabetes. MEDICATIONS AT DISCHARGE: Include: - atorvastatin 40 mg, dose increased from before - ranitidine will be stopped and substituted with famotidine 40 mg at hour of sleep - apixaban 5 mg twice a day - she will continue her eyedrops, Lumigan 0.01% drops, both eyes at bedtime. - she has been using Klonopin chronically for anxiety 0.5 mg at bedtime - zolpidem 5 mg at bedtime - sertraline 100 mg daily for anxiety - she will continue metformin 1000 mg daily - Tresiba 35 units subcutaneous daily - Giardia 25 mg daily for diabetes control. - she will resume lisinopril 10 mg a day; in hospital her pressures have been lowish, but she is asymptomatic with these low pressures - recommend that she not use naproxen sodium in the future because of known risk for increasing stroke formability FOLLOWUP: With her primary care provider (PCP) in a week and with Dr. Dahl in approximately two weeks.
[2019-07-15] MEDS ORDERED: ATORVASTATIN 20 MG TAB PO SCH (21:00)
[2019-07-17 10:11] LABS: VITAMIN B12 LEVEL 304 PG/ML (247-911)
[2019-07-18 11:24] LABS: DRVV SCREEN 48.8 SEC
[2019-07-18 11:49] LABS: PTT LUPUS TYPE ANTICOAG SCREEN 1.2 (0-1.2)
[2019-07-18 12:01] LABS: DRVV CONFIRM 55.4 SEC; LUPUS CONFIRM RATIO 1.5
[2019-07-18 12:22] LABS: NORMALIZED RATIO 0.8 (0.00-1.20)
[2019-07-18 14:27] LABS: ALBUMIN 3.77 GM/DL (3.29-5.55); ALBUMIN % 51.6 % (55.8-66.1); ALPHA-1-GLOBULIN % 5.5 % (2.9-4.9); ALPHA-2-GLOBULINS 0.97 GM/DL (0.42-0.99); ALPHA-2-GLOBULINS % 13.3 % (7.1-11.8); BETA-1-GLOBULINS 0.58 GM/DL (0.28-0.60); BETA-1-GLOBULINS % 7.9 % (4.7-7.2); BETA-2-GLOBULINS 0.61 GM/DL (0.19-0.55); BETA-2-GLOBULINS % 8.3 % (3.2-6.5); GAMMA GLOBULIN % 13.4 % (11.1-18.8); GAMMA GLOBULINS 0.98 GM/DL (0.65-1.58)
[2019-07-20 00:08] LABS: VITAMIN B1 LEVEL WHOLE BLOOD 156.4 nmol/L (66.5-200.0)
== END 2019-07-15 11:11 | disposition home or self-care (01) ==
LOC: M ED 09:45 → M ED INP 14:00 → INTOOBSV 14:00 → M PCU 15:45
PROVIDERS: ADMIT Internal Medicine; ATTEND Family Medicine
DX: G45.9 Transient cerebral ischemic attack, unspecified (principal); G43.909 Migraine, unspecified, not intractable, without status migrainosus; E78.49 Other hyperlipidemia; I10 Essential (primary) hypertension; E11.9 Type 2 diabetes mellitus without complications; Z79.4 Long term (current) use of insulin; Z79.01 Long term (current) use of anticoagulants; Z79.899 Other long term (current) drug therapy; F17.210 Nicotine dependence, cigarettes, uncomplicated; G47.30 Sleep apnea, unspecified; Z87.448 Personal history of other diseases of urinary system; F41.9 Anxiety disorder, unspecified; F43.10 Post-traumatic stress disorder, unspecified; K21.9 Gastro-esophageal reflux disease without esophagitis; Z88.5 Allergy status to narcotic agent
CPT/HCPCS: 36415; 70450; 70544; 70551; 71045; 80048; 80076; 81240; 81241; 82525; 82550; 82553; 82607; 84165; 84311; 84425; 84484; 85025; 85027; 85610; 85613; 85730; 86850; 86900; 86901; 90682; 93005; 93041; 93306; 93312; 93320; 93325; 93880; 94760; 97161; 99285; G0008; G0378

== ENCOUNTER → 2019-08-21 | Outpatient (REF) | payer MEDICARE, OTHER ==
[~2019-08-21] MED LIST: ALEV220T22 PO; ATOR1TAB21 PO; BIMA01SOL OU; CLON0.5T8 PO; ELIQ5TAB PO; FAMO20TA PO; JARD1TAB3 PO; LISI10TA4 PO; METF10004 PO; RANI300T PO; SERT-138 PO; TRES1INJ SC; ZOLP10TA2 PO
[2019-08-21 10:49] LABS: INR 0.99; PROTHROMBIN TIME 12.8 SECONDS (11.8-14.0)
[2019-08-21 10:50] LABS: PARTIAL THROMBOPLASTIN TIME 29.2 SECONDS (25.0-38.4)
[2019-08-21 11:04] LABS: HEMOGLOBIN A1c 7.8 %
[2019-08-21 11:14] LABS: ALBUMIN 3.3 GM/DL (3.2-5.2); ALT/SGPT 22 U/L (12-78); BILIRUBIN,TOTAL 0.3 MG/DL (0.2-1.0); BLOOD UREA NITROGEN 18 MG/DL (7-18); CALCIUM LEVEL 9.1 MG/DL (8.5-10.1); CARBON DIOXIDE LEVEL 28 MEQ/L (21-32); CHLORIDE LEVEL 106 MEQ/L (98-107); CHOLESTEROL LEVEL 119 MG/DL (<200); CHOLESTEROL RISK RATIO 3.606 (<5); GLOMERULAR FILTRATION RATE > 60.0 (>51); GLUCOSE, FASTING 115 MG/DL (70-100); HDL CHOLESTEROL 33 MG/DL (>40); LDL CHOLESTEROL 60 MG/DL (<100); MAGNESIUM LEVEL 2.2 MG/DL (1.8-2.4); NON-HDL-C 86 MG/DL; POTASSIUM SERUM 4.4 MEQ/L (3.5-5.1); SODIUM LEVEL 141 MEQ/L (136-145); TOTAL PROTEIN 6.9 GM/DL (6.4-8.2); TRIGLYCERIDES LEVEL 129 MG/DL (<150)
== END ==
LOC: M SFHCPLAZ 08:24
PROVIDERS: ATTEND Nurse Practitioner Family
DX: E11.9 Type 2 diabetes mellitus without complications (principal); E78.5 Hyperlipidemia, unspecified; I10 Essential (primary) hypertension; Z79.01 Long term (current) use of anticoagulants

== ENCOUNTER 2019-09-14 10:47 | Emergency (ER) | payer MEDICARE, OTHER ==
[~2019-09-14] VITALS: Ht 152.4 cm; Wt 80.9 kg
[~2019-09-14 10:47] MED LIST changes: +CLON0.5T2 PO; -CLON0.5T8 PO
[2019-09-14 12:54] LABS: BASO % 0.3 % (0.0-1.0); EOS # 0.3 10^3/uL (0.0-0.5); EOS % 2.1 % (0.0-3.0); HEMATOCRIT 42.7 % (36.0-47.0); HEMOGLOBIN 13.2 g/dl (12.0-15.5); LYMPH # 3.6 10^3/uL (1.5-5.0); LYMPH % 29.1 % (24.0-44.0); MEAN CORPUSCULAR HEMOGLOBIN 25.7 pg (27.0-33.0); MEAN CORPUSCULAR HGB CONC 30.9 g/dl (32.0-36.5); MEAN CORPUSCULAR VOLUME 83.1 fl (80.0-96.0); MONO # 0.7 10^3/uL (0.0-0.8); MONO % 5.6 % (0.0-5.0); NEUTROPHILS # 7.6 10^3/uL (1.5-8.5); NEUTROPHILS % 62.5 % (36.0-66.0); PLATELET COUNT, AUTOMATED 247 10^3/uL (150-450); RED BLOOD COUNT 5.14 10^6/uL (4.00-5.40); WHITE BLOOD COUNT 12.2 10^3/uL (4.0-10.0)
[2019-09-14 13:24] LABS: BLOOD UREA NITROGEN 15 MG/DL (7-18); CALCIUM LEVEL 9.8 MG/DL (8.5-10.1); CARBON DIOXIDE LEVEL 28 MEQ/L (21-32); CHLORIDE LEVEL 105 MEQ/L (98-107); CREATININE FOR GFR 0.87 MG/DL (0.55-1.30); GLOMERULAR FILTRATION RATE > 60.0 (>51); GLUCOSE, FASTING 126 MG/DL (70-100); POTASSIUM SERUM 3.7 MEQ/L (3.5-5.1); SODIUM LEVEL 140 MEQ/L (136-145)
[2019-09-14 13:25] LABS: ALBUMIN 3.6 GM/DL (3.2-5.2); ALT/SGPT 18 U/L (12-78); BILIRUBIN,TOTAL 0.2 MG/DL (0.2-1.0); TOTAL PROTEIN 7.5 GM/DL (6.4-8.2)
[2019-09-14] MEDS ORDERED: ISOVUE-370 76% 100ML VIAL (Q9967) As Ordered ONE (13:28)
--- NOTE | 2019-09-14 14:12 | REP ---
CT ABDOMEN AND PELVIS WITH IV BUT WITHOUT ORAL CONTRAST: HISTORY: Left flank pain. History of renal infarct. No comparison CT study. CT CONTRAST DOSE: 100 mL of intravenous Isovue 370. CT FINDINGS: Digital preliminary outreach representative radiograph is unremarkable. The lung bases are clear on axial CT images. There is mild diffuse fatty infiltration of the liver. The liver is not felt to be enlarged. No focal liver lesion is seen. The spleen is unremarkable. No adrenal lesion is observed. No pancreatic abnormality is noted. The gallbladder is surgically absent. The kidneys enhance symmetrically. There is bilateral renal cortical scarring in the lower poles. There are focal cortical deficits in the lower pole and mid pole of the left kidney, which could relate to the history of previous cortical infarct. There is a small cyst posteriorly in the right kidney 1 cm in diameter. No mass lesion is observed. Renal arteries are unremarkable and singular. Normal appendix is seen in the right lower quadrant. No retroperitoneal mass or adenopathy is seen. Small and large intestinal bowel loops are unremarkable. No abdominal wall defect is seen. The uterus is tipped to the left and there is a small fundal fibroid. The uterus is somewhat retroverted. No ovarian abnormality is observed on either side. Urinary bladder is intact. No bony destructive lesion is seen. IMPRESSION: Mild fatty infiltration of the liver. Post cholecystectomy. Bilateral lower pole renal cortical scarring. Two focal cortical defects in the left renal parenchyma may reflect prior infarcts. No hydronephrosis or renal stone disease seen. Small uterine fibroid. Normal appendix. Otherwise, negative. Electronically Signed by Babar Sullivan MD 09/14/2019 02:36 P
[2019-09-14 14:27] VITALS: BP 105/62
[2019-09-14] MEDS ORDERED: CYCLOBENZAPRINE 10 MG TAB PO ONE (15:00)
[2019-09-14] MEDS ORDERED: CYCL5TAB PO (15:26)
== END 2019-09-14 15:42 | disposition home or self-care (01) ==
LOC: M ED 10:47
DX: R10.9 Unspecified abdominal pain (principal); E11.9 Type 2 diabetes mellitus without complications; I10 Essential (primary) hypertension; F33.9 Major depressive disorder, recurrent, unspecified; F41.9 Anxiety disorder, unspecified; Z79.01 Long term (current) use of anticoagulants; Z79.899 Other long term (current) drug therapy; Z79.4 Long term (current) use of insulin; Z88.5 Allergy status to narcotic agent; Z88.8 Allergy status to other drugs, medicaments and biological substances; F17.210 Nicotine dependence, cigarettes, uncomplicated
CPT/HCPCS: 36415; 74177; 80053; 81001; 85025; 99284; Q9967

== ENCOUNTER → 2020-01-16 | Outpatient (CLI) | payer MEDICARE, MEDICAID ==
[~2020-01-16] MED LIST changes: +CYCL5TAB PO
--- NOTE | 2020-01-16 15:49 | REPPI ---
LEFT FOOT, FOUR VIEWS: Four views of the left foot were performed. There is a small calcific density at the base of the 5th middle phalanx which could represent a small avulsion fracture. No other acute fracture or dislocation is seen. There is mild posterior and inferior calcaneal spurring. There is mild joint space narrowing at the first metatarsal phalangeal joint. IMPRESSION: Possible small avulsion fracture at the base of the 5th middle phalanx. No other evidence of acute fracture or dislocation. Electronically Signed by Aric Crowley MD 01/16/2020 03:52 P
== END ==
LOC: M PLAIMG 14:36
PROVIDERS: ATTEND Physician Assistant Medical
DX: S99.922A Unspecified injury of left foot, initial encounter (principal); W22.03XA Walked into furniture, initial encounter; Y92.009 Unspecified place in unspecified non-institutional (private) residence as the place of occurrence of the external cause

== ENCOUNTER → 2020-07-18 | Outpatient (REF) | payer MEDICARE, MEDICAID ==
[2020-07-18 11:13] LABS: HEMOGLOBIN A1c 7.1 %
[2020-07-18 11:29] LABS: ALBUMIN 3.3 GM/DL (3.2-5.2); ALT/SGPT 22 U/L (12-78); BILIRUBIN,TOTAL 0.2 MG/DL (0.2-1.0); BLOOD UREA NITROGEN 15 MG/DL (7-18); CALCIUM LEVEL 9.1 MG/DL (8.5-10.1); CARBON DIOXIDE LEVEL 26 MEQ/L (21-32); CHLORIDE LEVEL 109 MEQ/L (98-107); CHOLESTEROL LEVEL 120 MG/DL (<200); CHOLESTEROL RISK RATIO 3.243 (<5); CREATININE FOR GFR 0.89 MG/DL (0.55-1.30); GLOMERULAR FILTRATION RATE > 60.0 (>51); GLUCOSE, FASTING 83 MG/DL (70-100); HDL CHOLESTEROL 37 MG/DL (>40); LDL CHOLESTEROL 48 MG/DL (<100); NON-HDL-C 83 MG/DL; POTASSIUM SERUM 4.2 MEQ/L (3.5-5.1); SODIUM LEVEL 141 MEQ/L (136-145); TOTAL PROTEIN 6.8 GM/DL (6.4-8.2); TRIGLYCERIDES LEVEL 174 MG/DL (<150)
[2020-07-18 11:42] LABS: MALB URINE SIEMENS 23.8 MG/L; MAU/CREAT RATIO 21.6 MCG/MG (0.0-30.0)
== END ==
LOC: M PLALAB 08:36
PROVIDERS: ATTEND Family Medicine
DX: E11.9 Type 2 diabetes mellitus without complications (principal); E78.5 Hyperlipidemia, unspecified

== ENCOUNTER → 2020-08-01 | Outpatient (CLI) | payer MEDICARE, MEDICAID ==
--- NOTE | 2020-08-01 17:29 | REPMRS ---
Patient History The patient states she has not had a clinical breast exam in over a year. Family history of breast cancer at age 57 in sister, ovarian cancer at age 45 in sister. No Hormone Replacement Therapy 3D TOMOSYNTHESIS WAS PERFORMED. [facility] lifetime risk for breast cancer is 15.9%. Volpara breast density c. Digital Woman Screen Mammo: August 01, 2020 - Exam #: [id number] Bilateral CC and MLO view(s) were taken. Technologist: Radha Brown, Technologist Prior study comparison: April 17, 2019, bilateral digital woman screen mammo performed at [facility]. August 2017, bilateral digital mammo screening bilat, performed at [facility]. FINDINGS: The breast tissue is heterogeneously dense. This may lower the sensitivity of mammography. There has been no change in the appearance of the mammogram from the prior studies. There is a moderate amount of residual fibroglandular tissue which is fairly symmetric. There is no interval development of dominant mass, areas of architectural distortion, or clustered microcalcification typical of malignancy. Assessment: BI-RADS/ACR category 1 mammogram. Negative Mammogram. Recommendation Routine screening mammogram in 1 year (for women over age 40). This mammogram was interpreted with the aid of an FDA-approved computer-aided dectection system. Electronically Signed By: Aric Crowley MD 08/01/20 [id number]
== END ==
LOC: M WHC 14:59
PROVIDERS: ATTEND Nurse Practitioner Family
DX: Z12.31 Encounter for screening mammogram for malignant neoplasm of breast (principal); Z80.3 Family history of malignant neoplasm of breast

== ENCOUNTER → 2020-11-28 | Outpatient (REF) | payer MEDICARE, MEDICAID ==
[~2020-11-28] MED LIST changes: +LISI10TA22 PO; -LISI10TA4 PO
[2020-11-28 11:22] LABS: HEMOGLOBIN A1c 7.3 %
[2020-11-28 11:31] LABS: ALBUMIN 3.5 GM/DL (3.2-5.2); ALT/SGPT 25 U/L (12-78); BILIRUBIN,TOTAL 0.1 MG/DL (0.2-1.0); BLOOD UREA NITROGEN 20 MG/DL (7-18); CALCIUM LEVEL 9.1 MG/DL (8.5-10.1); CARBON DIOXIDE LEVEL 28 MEQ/L (21-32); CHLORIDE LEVEL 109 MEQ/L (98-107); CHOLESTEROL LEVEL 132 MG/DL (<200); CHOLESTEROL RISK RATIO 3.771 (<5); CREATININE FOR GFR 0.93 MG/DL (0.55-1.30); GLOMERULAR FILTRATION RATE > 60.0 (>51); GLUCOSE, FASTING 113 MG/DL (70-100); HDL CHOLESTEROL 35 MG/DL (>40); LDL CHOLESTEROL 46 MG/DL (<100); NON-HDL-C 97 MG/DL; POTASSIUM SERUM 4.2 MEQ/L (3.5-5.1); SODIUM LEVEL 144 MEQ/L (136-145); TOTAL PROTEIN 7.1 GM/DL (6.4-8.2); TRIGLYCERIDES LEVEL 256 MG/DL (<150)
== END ==
LOC: M PLALAB 08:41
PROVIDERS: ATTEND Nurse Practitioner Family
DX: E78.5 Hyperlipidemia, unspecified (principal); E11.9 Type 2 diabetes mellitus without complications

== ENCOUNTER → 2020-12-06 | Outpatient (CLI) | payer MEDICARE, MEDICAID ==
--- NOTE | 2020-12-06 11:58 | REPPI ---
INDICATION: M25.512 LEFT SHOULDER PAIN COMPARISON: None. TECHNIQUE: Internal rotation, external rotation, and Y view. FINDINGS: Cortical irregularity and subtle spurring at the acromioclavicular joint. Possible old healed clavicle shaft fracture. Subacromial space is normal. Glenohumeral joint is normal. No periarticular calcifications or loose bodies are identified. IMPRESSION: Mild age-related degenerative changes at the acromioclavicular joint. <Electronically signed by Mahendra Kim > 12/06/20 [id number]
== END ==
LOC: M PLAIMG 11:33
PROVIDERS: ATTEND Nurse Practitioner Family
DX: M19.012 Primary osteoarthritis, left shoulder (principal); M25.512 Pain in left shoulder
CPT/HCPCS: 73030; G0463

== ENCOUNTER → 2021-02-03 | Outpatient (CLI) | payer MEDICARE, MEDICAID ==
--- NOTE | 2021-02-03 20:59 | REPPI ---
INDICATION: G56.20 ULNAR NEUROPATHY COMPARISON: None. TECHNIQUE: AP, lateral, bilateral oblique views left wrist. FINDINGS: The osseous structures, joint spaces, and surrounding soft tissues are essentially age-appropriate. No acute or healed injury is identified. No overt arthritic changes are appreciated. IMPRESSION: Essentially age-appropriate wrist radiograph series. <Electronically signed by Mahendra Kim > 02/03/21 [id number]
--- NOTE | 2021-02-03 21:02 | REPPI ---
INDICATION: G56.20 ULNAR NEUROPATHY COMPARISON: None. TECHNIQUE: AP, lateral, bilateral oblique views of the left elbow. FINDINGS: There is no evidence for acute fracture or dislocation. No evidence for effusion. Cortical irregularity along the medial humeral condyle suggesting mild chronic change. Joint spaces are otherwise normal. Surrounding soft tissues are unremarkable. No periarticular calcifications or loose bodies are identified. IMPRESSION: Mild age-related changes. <Electronically signed by Mahendra Kim > 02/03/21 0636
== END ==
LOC: M PLAIMG 14:18
PROVIDERS: ATTEND Nurse Practitioner Family
DX: G56.20 Lesion of ulnar nerve, unspecified upper limb (principal)
CPT/HCPCS: 73080; 73110; G0463

== ENCOUNTER → 2021-02-23 | Outpatient (CLI) | payer MEDICARE, MEDICAID ==
--- NOTE | 2021-02-23 11:16 | REP ---
INDICATION: ULNAR NEUROPATHY. Patient reports pain in the elbow starting 3 weeks ago with limited range of motion. COMPARISON: Comparison radiographs of the left elbow are from February 03, 2021.. TECHNIQUE: Left elbow MRI is acquired with axial, coronal, and sagittal imaging planes included with without fat saturation. FINDINGS: Cortical and medullary bone signal intensity is normal. There is no evidence of occult fracture or bony lesion. The radiographs demonstrate mild coronoid process spurring. There is also medial and lateral epicondylar spurring visible on the radiographs. This is visible although less conspicuously on MR. No joint effusion or juxta-articular cyst is seen. Triceps, biceps, and brachialis tendons have an unremarkable appearance. Medial and lateral collateral ligaments are intact. T2 weighted scans show no evidence of soft tissue edema adjacent to the medial or lateral epicondyle. There is no evidence of accessory muscle or soft tissue mass or cyst along the distribution of the ulnar nerve. Study is otherwise unremarkable. IMPRESSION: Mild coronoid process and epicondylar spurring. Otherwise negative. <Electronically signed by Frantz Sullivan > 02/23/21 0901
--- NOTE | 2021-02-23 12:16 | REP ---
INDICATION: ULNAR NEUROPATHY. Numbness and pain in the wrist for 3 weeks. COMPARISON: Comparison wrist radiographs February 03, 2021.. TECHNIQUE: Axial, sagittal, and coronal imaging planes utilized. T1 and T2 weighted scans are obtained in the usual fashion with without fat saturation. FINDINGS: Cortical and medullary bone signal intensity are normal in the distal radius, distal ulna, carpals bones, and metacarpal bones. There is mild osteoarthritic spurring at the 1st carpometacarpal articulation. Triangular fibrocartilage appears intact. No joint effusion or juxta-articular cyst is seen. The distal radioulnar articulation appears intact. Carpal tunnel and contents are unremarkable. There is no evidence of compression or entrapment in the distribution of the ulnar nerve through Guyon's canal. No cyst or mass is seen. There is no evidence of flexor or extensor tendinopathy. IMPRESSION: Mild spurring at the 1st carpometacarpal articulation. Otherwise unremarkable MRI study of the left wrist. <Electronically signed by Frantz Sullivan > 02/23/21 [id number]
== END ==
LOC: M RAD 09:54
PROVIDERS: ATTEND Nurse Practitioner Family
DX: G56.20 Lesion of ulnar nerve, unspecified upper limb (principal)

== ENCOUNTER → 2021-04-09 | Outpatient (CLI) | payer MEDICARE, MEDICAID ==
[2021-04-09 13:50] LABS: BASO % 0.3 % (0.0-1.0); EOS # 0.2 10^3/uL (0.0-0.5); EOS % 1.9 % (0.0-3.0); HEMATOCRIT 41.9 % (36.0-47.0); HEMOGLOBIN 13.1 g/dl (12.0-15.5); LYMPH # 2.9 10^3/uL (1.5-5.0); LYMPH % 22.4 % (24.0-44.0); MEAN CORPUSCULAR HEMOGLOBIN 26.4 pg (27.0-33.0); MEAN CORPUSCULAR HGB CONC 31.3 g/dl (32.0-36.5); MEAN CORPUSCULAR VOLUME 84.5 fl (80.0-96.0); MONO # 0.7 10^3/uL (0.0-0.8); MONO % 5.7 % (2.0-8.0); NEUTROPHILS # 8.8 10^3/uL (1.5-8.5); NEUTROPHILS % 68.9 % (36.0-66.0); PLATELET COUNT, AUTOMATED 228 10^3/uL (150-450); RED BLOOD COUNT 4.96 10^6/uL (4.00-5.40); WHITE BLOOD COUNT 12.7 10^3/uL (4.0-10.0)
[2021-04-09 14:20] LABS: CREATININE, URINE 72.1 MG/DL; MALB URINE SIEMENS 22.1 MG/L; MAU/CREAT RATIO 30.6 MCG/MG (0.0-30.0)
[2021-04-09 14:35] LABS: ALBUMIN 3.4 GM/DL (3.2-5.2); ALT/SGPT 33 U/L (12-78); BILIRUBIN,TOTAL 0.2 MG/DL (0.2-1.0); BLOOD UREA NITROGEN 19 MG/DL (7-18); CALCIUM LEVEL 9.3 MG/DL (8.5-10.1); CARBON DIOXIDE LEVEL 28 MEQ/L (21-32); CHLORIDE LEVEL 107 MEQ/L (98-107); CHOLESTEROL LEVEL 130 MG/DL (<200); CHOLESTEROL RISK RATIO 4.193 (<5); CREATININE FOR GFR 0.93 MG/DL (0.55-1.30); FREE T4 0.96 NG/DL (0.76-1.46); GLOMERULAR FILTRATION RATE > 60.0 (>51); GLUCOSE, FASTING 146 MG/DL (70-100); HDL CHOLESTEROL 31 MG/DL (>40); LDL CHOLESTEROL 36 MG/DL (<100); NON-HDL-C 99 MG/DL; POTASSIUM SERUM 4.3 MEQ/L (3.5-5.1); SODIUM LEVEL 141 MEQ/L (136-145); TOTAL PROTEIN 6.9 GM/DL (6.4-8.2); TRIGLYCERIDES LEVEL 313 MG/DL (<150)
== END ==
LOC: M PLALAB 10:00
PROVIDERS: ATTEND Nurse Practitioner Family
DX: I10 Essential (primary) hypertension (principal)

== ENCOUNTER → 2021-06-26 | Outpatient (REF) | payer MEDICARE, MEDICAID | LOC: M SFHCWAGY 13:32 | PROVIDERS: ATTEND Advanced Practice Midwife | DX: Z12.4 Encounter for screening for malignant neoplasm of cervix (principal) | CPT/HCPCS: 87624; G0123; G0463 ==

== ENCOUNTER → 2021-08-04 | Outpatient (CLI) | payer MEDICARE, MEDICAID ==
--- NOTE | 2021-08-04 10:04 | REPMRS ---
Patient History The patient states she had a clinical breast exam 06/26/21. Family history of breast cancer at age 57 in sister, ovarian cancer at age 45 in sister. No Hormone Replacement Therapy Tomosynthesis is performed. Volpara breast density is b. [facility] lifetime risk of breast cancer 15.5%. Digital Woman Screen Mammo: August 04, 2021 - Exam #: [id number] Bilateral CC and MLO view(s) were taken. Technologist: Dennise Hilton, Bag Repairer Prior study comparison: August 01, 2020, bilateral digital woman screen mammo performed at [facility]. April 17, 2019, bilateral digital woman screen mammo performed at [facility]. FINDINGS: The breast tissue is heterogeneously dense. This may lower the sensitivity of mammography. There has been no change in the appearance of the mammogram from the prior studies. There is a moderate amount of residual fibroglandular tissue which is fairly symmetric. There is no interval development of dominant mass, areas of architectural distortion, or clustered microcalcification typical of malignancy. Assessment: BI-RADS/ACR category 1 mammogram. Negative Mammogram. Recommendation Routine screening mammogram in 1 year (for women over age 40). This mammogram was interpreted with the aid of an FDA-approved computer-aided dectection system. Electronically Signed By: Aric Crowley MD 08/04/21 [id number]
== END ==
LOC: M WHC 09:08
PROVIDERS: ATTEND Advanced Practice Midwife
DX: Z12.31 Encounter for screening mammogram for malignant neoplasm of breast (principal)

== ENCOUNTER → 2021-08-06 | Outpatient (CLI) | payer MEDICARE, MEDICAID ==
--- NOTE | 2021-08-06 15:42 | REP ---
INDICATION: PELVIC PAIN. COMPARISON: None. TECHNIQUE: Transabdominal and transvaginal scanning performed. FINDINGS: Uterine dimensions are 6.4 x 3.7 x 4.4 cm. Endometrial echo is 5 mm in AP dimension and centrally placed. The uterus is retroflexed. There is a fundal fibroid measuring 2.3 x 2.4 x 2.2 cm. The bladder measures 5.4 x 3.9 x 6.6cm. The right ovary has dimensions of 1.0 x 2.3 x 2.5 cm. It's Doppler flow is normal with a resistive index of 0.56. The left ovary could not be visualized. There is no adnexal mass identified. No free fluid is seen in the cul-de-sac. IMPRESSION: Retroflexed uterus, endometrial thickness 5 mm. Fundal fibroid with maximum diameter 2.4 cm. Normal appearing right ovary. Left ovary could not be visualized. No evidence of adnexal mass or free fluid. <Electronically signed by Aric Crowley > 08/06/21 [id number]
== END ==
LOC: M WHC 10:16
PROVIDERS: ATTEND Advanced Practice Midwife
DX: R10.2 Pelvic and perineal pain (principal)

== ENCOUNTER 2021-11-13 23:16 | Emergency (ER) | payer MEDICARE, MEDICAID ==
[~2021-11-13] VITALS: Ht 152.4 cm; Wt 81.4 kg
[2021-11-13] MEDS ORDERED: NS 1,000 ML IV ONE (23:30)
[2021-11-13] MEDS ORDERED: KETOROLAC 30 MG/ML 1ML VIAL IV ONE (23:30)
[2021-11-13] MEDS ORDERED: ONDANSETRON 4MG/2ML VIAL IV ONE (23:30)
[2021-11-14 00:02] LABS: BILIRUBIN, URINE MANUAL NEGATIVE (NEGATIVE); GLUCOSE, URINE (UA) MANUAL 4+(1000 MG/DL) mg/dL (NEGATIVE); KETONE, URINE MANUAL NEGATIVE (NEGATIVE); UROBILINOGEN, URINE MANUAL NORMAL (NORMAL)
[2021-11-14 00:09] LABS: BASO # 0.1 10^3/uL (0.0-0.2); BASO % 0.3 % (0.0-1.0); EOS # 0.2 10^3/uL (0.0-0.5); EOS % 1.5 % (0.0-3.0); HEMATOCRIT 43.5 % (36.0-47.0); HEMOGLOBIN 14.1 g/dl (12.0-15.5); LYMPH # 4.4 10^3/uL (1.5-5.0); LYMPH % 29.9 % (24.0-44.0); MEAN CORPUSCULAR HEMOGLOBIN 27.3 pg (27.0-33.0); MEAN CORPUSCULAR HGB CONC 32.4 g/dl (32.0-36.5); MEAN CORPUSCULAR VOLUME 84.3 fl (80.0-96.0); MONO # 0.7 10^3/uL (0.0-0.8); MONO % 4.8 % (2.0-8.0); NEUTROPHILS # 9.3 10^3/uL (1.5-8.5); NEUTROPHILS % 62.7 % (36.0-66.0); PLATELET COUNT, AUTOMATED 295 10^3/uL (150-450); RED BLOOD COUNT 5.16 10^6/uL (4.00-5.40); WHITE BLOOD COUNT 14.9 10^3/uL (4.0-10.0)
[2021-11-14 00:26] LABS: ALBUMIN 3.8 GM/DL (3.2-5.2); BILIRUBIN,TOTAL 0.2 MG/DL (0.2-1.0); CALCIUM LEVEL 9.7 MG/DL (8.5-10.1); CREATININE FOR GFR 1.19 MG/DL (0.55-1.30); GLOMERULAR FILTRATION RATE 50.1 (>51); TOTAL PROTEIN 7.7 GM/DL (6.4-8.2)
[2021-11-14] MEDS ORDERED: ISOVUE-370 76% 100ML VIAL As Ordered ONE (01:08)
[2021-11-14 04:30] VITALS: BP 101/62
== END 2021-11-14 04:49 | disposition home or self-care (01) ==
LOC: M ED 23:16
DX: R10.9 Unspecified abdominal pain (principal); E11.9 Type 2 diabetes mellitus without complications; E78.5 Hyperlipidemia, unspecified; F17.200 Nicotine dependence, unspecified, uncomplicated; Z79.01 Long term (current) use of anticoagulants; Z79.4 Long term (current) use of insulin; Z88.6 Allergy status to analgesic agent
CPT/HCPCS: 74177; 80053; 85025; 93005; 96361; 96374; 96375; 99284; J1885; J2405; Q9967

== ENCOUNTER → 2022-01-06 | Outpatient (CLI) | payer MEDICARE, MEDICAID ==
[2022-01-06 12:17] LABS: HEMOGLOBIN A1c 6.7 %
[2022-01-06 12:31] LABS: ALBUMIN 3.3 GM/DL (3.2-5.2); ALT/SGPT 22 U/L (12-78); BILIRUBIN,TOTAL 0.2 MG/DL (0.2-1.0); BLOOD UREA NITROGEN 15 MG/DL (7-18); CALCIUM LEVEL 9.5 MG/DL (8.5-10.1); CARBON DIOXIDE LEVEL 30 MEQ/L (21-32); CHLORIDE LEVEL 109 MEQ/L (98-107); CHOLESTEROL LEVEL 117 MG/DL (<200); CHOLESTEROL RISK RATIO 3.441 (<5); CREATININE FOR GFR 0.97 MG/DL (0.55-1.30); GLOMERULAR FILTRATION RATE > 60.0 (>51); GLUCOSE, FASTING 91 MG/DL (70-100); HDL CHOLESTEROL 34 MG/DL (>40); LDL CHOLESTEROL 18 MG/DL (<100); NON-HDL-C 83 MG/DL; POTASSIUM SERUM 4.2 MEQ/L (3.5-5.1); SODIUM LEVEL 142 MEQ/L (136-145); TOTAL PROTEIN 6.8 GM/DL (6.4-8.2); TRIGLYCERIDES LEVEL 323 MG/DL (<150)
[2022-01-06 12:40] LABS: CREATININE, URINE 73.6 MG/DL; MALB URINE SIEMENS 13.7 MG/L; MAU/CREAT RATIO 18.6 MCG/MG (0.0-30.0)
== END ==
LOC: M PLALAB 08:08
PROVIDERS: ATTEND Nurse Practitioner Family
DX: E78.5 Hyperlipidemia, unspecified (principal); E11.9 Type 2 diabetes mellitus without complications

== ENCOUNTER → 2022-05-22 | Outpatient (CLI) | payer MEDICARE, MEDICAID ==
[2022-05-22 13:56] LABS: BASO % 0.3 % (0.0-1.0); EOS # 0.2 10^3/uL (0.0-0.5); EOS % 1.4 % (0.0-3.0); HEMATOCRIT 39.5 % (36.0-47.0); LYMPH # 3.6 10^3/uL (1.5-5.0); LYMPH % 25.9 % (24.0-44.0); MEAN CORPUSCULAR HEMOGLOBIN 28.3 pg (27.0-33.0); MEAN CORPUSCULAR HGB CONC 32.9 g/dl (32.0-36.5); MEAN CORPUSCULAR VOLUME 86.1 fl (80.0-96.0); MONO # 0.6 10^3/uL (0.0-0.8); MONO % 4.1 % (2.0-8.0); NEUTROPHILS # 9.3 10^3/uL (1.5-8.5); NEUTROPHILS % 67.7 % (36.0-66.0); PLATELET COUNT, AUTOMATED 252 10^3/uL (150-450); RED BLOOD COUNT 4.59 10^6/uL (4.00-5.40); WHITE BLOOD COUNT 13.7 10^3/uL (4.0-10.0)
[2022-05-22 14:31] LABS: HEMOGLOBIN A1c 6.9 %
[2022-05-22 14:41] LABS: ALBUMIN 3.8 GM/DL (3.2-5.2); ALT/SGPT 35 U/L (12-78); BILIRUBIN,TOTAL 0.2 MG/DL (0.2-1.0); BLOOD UREA NITROGEN 9 MG/DL (7-18); CALCIUM LEVEL 9.6 MG/DL (8.5-10.1); CARBON DIOXIDE LEVEL 26 MEQ/L (21-32); CHLORIDE LEVEL 105 MEQ/L (98-107); CHOLESTEROL LEVEL 119 MG/DL (<200); CHOLESTEROL RISK RATIO 2.767 (<5); CREATININE FOR GFR 0.98 MG/DL (0.55-1.30); GLOMERULAR FILTRATION RATE > 60.0 (>51); GLUCOSE, FASTING 105 MG/DL (70-100); HDL CHOLESTEROL 43 MG/DL (>40); LDL CHOLESTEROL 26 MG/DL (<100); NON-HDL-C 76 MG/DL; POTASSIUM SERUM 3.9 MEQ/L (3.5-5.1); SODIUM LEVEL 137 MEQ/L (136-145); TOTAL PROTEIN 7.2 GM/DL (6.4-8.2); TRIGLYCERIDES LEVEL 252 MG/DL (<150)
[2022-05-22 14:42] LABS: FREE T4 0.97 NG/DL (0.76-1.46)
[2022-05-22 14:44] LABS: CREATININE, URINE 74.9 MG/DL; MALB URINE SIEMENS 42.6 MG/L; MAU/CREAT RATIO 56.8 MCG/MG (0.0-30.0)
== END ==
LOC: M PLALAB 11:27
PROVIDERS: ATTEND Nurse Practitioner Family
DX: E78.5 Hyperlipidemia, unspecified (principal); E11.9 Type 2 diabetes mellitus without complications

== ENCOUNTER → 2022-09-02 | Outpatient (CLI) | payer MEDICARE, MEDICAID ==
[2022-09-02 14:22] LABS: BASO % 0.3 % (0.0-1.0); EOS # 0.2 10^3/uL (0.0-0.5); EOS % 1.9 % (0.0-3.0); HEMATOCRIT 37.9 % (36.0-47.0); HEMOGLOBIN 12.3 g/dl (12.0-15.5); LYMPH # 3.3 10^3/uL (1.5-5.0); LYMPH % 25.7 % (24.0-44.0); MEAN CORPUSCULAR HEMOGLOBIN 28.1 pg (27.0-33.0); MEAN CORPUSCULAR HGB CONC 32.5 g/dl (32.0-36.5); MEAN CORPUSCULAR VOLUME 86.7 fl (80.0-96.0); MONO # 0.7 10^3/uL (0.0-0.8); MONO % 5.1 % (2.0-8.0); NEUTROPHILS # 8.5 10^3/uL (1.5-8.5); NEUTROPHILS % 66.4 % (36.0-66.0); PLATELET COUNT, AUTOMATED 230 10^3/uL (150-450); RED BLOOD COUNT 4.37 10^6/uL (4.00-5.40); WHITE BLOOD COUNT 12.8 10^3/uL (4.0-10.0)
[2022-09-02 16:01] LABS: ALBUMIN 3.4 G/DL (3.2-5.2); ALKALINE PHOSPHATASE 157 U/L (46-116); ALT/SGPT 23 U/L (7.0-40); AST/SGOT 18 U/L (<34); BILIRUBIN,TOTAL 0.2 MG/DL (0.3-1.2); BLOOD UREA NITROGEN 16 MG/DL (9-23); CALCIUM LEVEL 8.8 MG/DL (8.5-10.1); CARBON DIOXIDE LEVEL 26 MMOL/L (20-31); CHLORIDE LEVEL 104 MMOL/L (98-107); CHOLESTEROL LEVEL 131 MG/DL (<200); CHOLESTEROL RISK RATIO 3.61 (<5); CREATININE FOR GFR 0.88 MG/DL (0.55-1.30); GLOMERULAR FILTRATION RATE > 60.0 (>51); GLUCOSE, FASTING 130 MG/DL (60-100); HDL CHOLESTEROL 36.2 MG/DL (>40); LDL CHOLESTEROL 32.4 MG/DL (<100); NON-HDL-C 95 MG/DL; POTASSIUM SERUM 3.8 MMOL/L (3.5-5.1); SODIUM LEVEL 139 MMOL/L (136-145); TOTAL PROTEIN 6.8 G/DL (5.7-8.2); TRIGLYCERIDES LEVEL 312 MG/DL (<150)
[2022-09-02 17:04] LABS: CREATININE, URINE 82.1 MG/DL
[2022-09-02 17:05] LABS: MAU/CREAT RATIO 60.9 MCG/MG (0.0-30.0)
== END ==
LOC: M PLALAB 10:22
PROVIDERS: ATTEND Nurse Practitioner Family
DX: E11.9 Type 2 diabetes mellitus without complications (principal)

== ENCOUNTER → 2023-03-05 | Outpatient (CLI) | payer MEDICARE, MEDICAID ==
[2023-03-05 14:12] LABS: BASO # 0.1 10^3/uL (0.0-0.2); BASO % 0.4 % (0.0-1.0); EOS # 0.2 10^3/uL (0.0-0.5); EOS % 1.4 % (0.0-3.0); HEMATOCRIT 43.9 % (36.0-47.0); LYMPH # 3.4 10^3/uL (1.5-5.0); LYMPH % 28.4 % (24.0-44.0); MEAN CORPUSCULAR HEMOGLOBIN 27.6 pg (27.0-33.0); MEAN CORPUSCULAR HGB CONC 31.9 g/dl (32.0-36.5); MEAN CORPUSCULAR VOLUME 86.4 fl (80.0-96.0); MONO # 0.7 10^3/uL (0.0-0.8); MONO % 5.5 % (2.0-8.0); NEUTROPHILS # 7.6 10^3/uL (1.5-8.5); PLATELET COUNT, AUTOMATED 225 10^3/uL (150-450); RED BLOOD COUNT 5.08 10^6/uL (4.00-5.40); WHITE BLOOD COUNT 11.9 10^3/uL (4.0-10.0)
[2023-03-05 14:41] LABS: CREATININE, URINE 151.8 MG/DL
[2023-03-05 14:42] LABS: MAU/CREAT RATIO 55.3 MCG/MG (0.0-30.0)
[2023-03-05 14:46] LABS: FREE T4 1.11 NG/DL (0.89-1.76); THYROID STIMULATING HORMONE 0.802 uIU/ML (0.55-4.78)
[2023-03-05 14:48] LABS: ALBUMIN 3.8 G/DL (3.2-5.2); ALKALINE PHOSPHATASE 154 U/L (46-116); ALT/SGPT 35 U/L (7.0-40); AST/SGOT 21 U/L (<34); BILIRUBIN,TOTAL 0.2 MG/DL (0.3-1.2); BLOOD UREA NITROGEN 12 MG/DL (9-23); CARBON DIOXIDE LEVEL 27 MMOL/L (20-31); CHLORIDE LEVEL 106 MMOL/L (98-107); CHOLESTEROL LEVEL 178 MG/DL (<200); CREATININE FOR GFR 0.97 MG/DL (0.55-1.30); GLOMERULAR FILTRATION RATE > 60.0 (>51); GLUCOSE, FASTING 100 MG/DL (60-100); HDL CHOLESTEROL 35.6 MG/DL (>40); LDL CHOLESTEROL 69.2 MG/DL (<100); NON-HDL-C 142.4 MG/DL; SODIUM LEVEL 139 MMOL/L (136-145); TOTAL PROTEIN 6.9 G/DL (5.7-8.2); TRIGLYCERIDES LEVEL 366 MG/DL (<150)
[2023-03-05 15:25] LABS: HEMOGLOBIN A1c 7.5 % (4.0-6.0)
== END ==
LOC: M PLALAB 10:40
PROVIDERS: ATTEND Nurse Practitioner Family
DX: E78.5 Hyperlipidemia, unspecified (principal); E11.9 Type 2 diabetes mellitus without complications; I10 Essential (primary) hypertension

== ENCOUNTER → 2023-03-12 | Outpatient (CLI) | payer MEDICARE, MEDICAID | LOC: M WHC 13:05 | PROVIDERS: ATTEND Nurse Practitioner Family | DX: Z12.31 Encounter for screening mammogram for malignant neoplasm of breast (principal) ==

== ENCOUNTER → 2024-05-12 | Outpatient (CLI) | payer MEDICARE, MEDICAID ==
[~2024-05-12] MED LIST changes: +ASPI81TA26 PO; +ATIV1TAB10; +ATOR1TAB19; +DULO1CAP6; +GABA-1171; +LANTINJ4; +MAGN64TA3; +MIRT-10; +NOVOINJ3; +ONDA-83; +PANT20TA6; +TRAM50TA2; +TRAM50TA2 PO; +WARF-20; +WARF-23; +ZOLP5TAB
[2024-05-12 13:36] LABS: BASO % 0.4 % (0.0-1.0); EOS # 0.1 10^3/uL (0.0-0.5); EOS % 1.6 % (0.0-3.0); HEMATOCRIT 37.5 % (36.0-47.0); HEMOGLOBIN 12.3 g/dl (12.0-15.5); LYMPH % 32.8 % (24.0-44.0); MEAN CORPUSCULAR HEMOGLOBIN 27.7 pg (27.0-33.0); MEAN CORPUSCULAR HGB CONC 32.8 g/dl (32.0-36.5); MEAN CORPUSCULAR VOLUME 84.5 fl (80.0-96.0); MONO # 0.5 10^3/uL (0.0-0.8); MONO % 5.2 % (2.0-8.0); NEUTROPHILS # 5.3 10^3/uL (1.5-8.5); NEUTROPHILS % 59.3 % (36.0-66.0); PLATELET COUNT, AUTOMATED 274 10^3/uL (150-450); RED BLOOD COUNT 4.44 10^6/uL (4.00-5.40)
[2024-05-12 13:38] LABS: CREATININE, URINE 73.8 MG/DL
[2024-05-12 13:39] LABS: MAU/CREAT RATIO 475.6 MCG/MG (0.0-30.0)
[2024-05-12 13:49] LABS: INR 3.87; PROTHROMBIN TIME 36.5 SECONDS (12.5-14.5)
[2024-05-12 14:06] LABS: ALBUMIN 3.3 G/DL (3.2-5.2); ALKALINE PHOSPHATASE 176 U/L (46-116); ALT/SGPT 34 U/L (7.0-40); AST/SGOT 15 U/L (<34); BILIRUBIN,TOTAL 0.2 MG/DL (0.3-1.2); BLOOD UREA NITROGEN 19 MG/DL (9-23); CALCIUM LEVEL 9.3 MG/DL (8.5-10.1); CARBON DIOXIDE LEVEL 27 MMOL/L (20-31); CHLORIDE LEVEL 106 MMOL/L (98-107); CHOLESTEROL LEVEL 160 MG/DL (<200); CHOLESTEROL RISK RATIO 3.38 (<5); CREATININE FOR GFR 0.76 MG/DL (0.55-1.30); GLOMERULAR FILTRATION RATE > 60.0 (>51); GLUCOSE, FASTING 241 MG/DL (60-100); HDL CHOLESTEROL 47.3 MG/DL (>40); LDL CHOLESTEROL 57.3 MG/DL (<100); NON-HDL-C 112.7 MG/DL; POTASSIUM SERUM 4.3 MMOL/L (3.5-5.1); SODIUM LEVEL 138 MMOL/L (136-145); TOTAL PROTEIN 6.8 G/DL (5.7-8.2); TRIGLYCERIDES LEVEL 277 MG/DL (<150)
[2024-05-12 14:11] LABS: THYROID STIMULATING HORMONE 1.182 uIU/ML (0.55-4.78)
[2024-05-12 14:28] LABS: HEMOGLOBIN A1c 10.1 % (4.0-6.0)
== END ==
LOC: M PLALAB 09:54
PROVIDERS: ATTEND Nurse Practitioner Family
DX: E78.5 Hyperlipidemia, unspecified (principal); E11.9 Type 2 diabetes mellitus without complications; E55.9 Vitamin D deficiency, unspecified; Z79.01 Long term (current) use of anticoagulants

== ENCOUNTER 2024-05-13 06:31 | Emergency (ER) | payer MEDICARE, MEDICAID ==
[~2024-05-13 06:31] MED LIST changes: -ASPI81TA26 PO; -ATIV1TAB10; -ATOR1TAB19; -DULO1CAP6; -GABA-1171; -LANTINJ4; -MAGN64TA3; -MIRT-10; -NOVOINJ3; -ONDA-83; -PANT20TA6; -TRAM50TA2; -TRAM50TA2 PO; -WARF-20; -WARF-23; -ZOLP5TAB
[2024-05-13] MEDS ORDERED: MIRT-10 (09:38)
[2024-05-13] MEDS ORDERED: LANTINJ4 (09:38)
[2024-05-13] MEDS ORDERED: WARF-20 (09:38)
[2024-05-13] MEDS ORDERED: TRAM50TA2 (09:38)
[2024-05-13] MEDS ORDERED: PANT20TA6 (09:38)
[2024-05-13] MEDS ORDERED: ZOLP5TAB (09:38)
[2024-05-13] MEDS ORDERED: ONDA-83 (09:38)
[2024-05-13] MEDS ORDERED: ATIV1TAB10 (09:38)
[2024-05-13] MEDS ORDERED: WARF-23 (09:38)
[2024-05-13] MEDS ORDERED: ATOR1TAB19 (09:38)
[2024-05-13] MEDS ORDERED: DULO1CAP6 (09:38)
[2024-05-13] MEDS ORDERED: GABA-1171 (09:38)
[2024-05-13] MEDS ORDERED: MAGN64TA3 (09:38)
[2024-05-13] MEDS ORDERED: ASPI81TA26 PO (09:39)
[2024-05-13] MEDS ORDERED: NOVOINJ3 (09:40)
[2024-05-13] MEDS: ACETAMINOPHEN 500 MG TAB PO ONE (10:18)
[2024-05-13] MEDS ORDERED: TRAM50TA2 PO (10:28)
[2024-05-13 10:45] VITALS: BP 133/77; TEMP 96.9; O2SAT 97
== END 2024-05-13 10:48 | disposition home or self-care (01) ==
LOC: M ED 06:31
DX: M25.562 Pain in left knee (principal); I48.91 Unspecified atrial fibrillation; E11.9 Type 2 diabetes mellitus without complications; I10 Essential (primary) hypertension; Z88.5 Allergy status to narcotic agent; Z88.8 Allergy status to other drugs, medicaments and biological substances; Z79.1 Long term (current) use of non-steroidal anti-inflammatories (NSAID); Z79.4 Long term (current) use of insulin; Z79.899 Other long term (current) drug therapy

== ENCOUNTER → 2024-06-16 | Outpatient (CLI) | payer MEDICARE, MEDICAID ==
[~2024-06-16] MED LIST changes: +ASPI81TA26 PO; +ATIV1TAB10; +ATOR1TAB19; +DULO1CAP6; +GABA-1171; +LANTINJ4; +MAGN64TA3; +MIRT-10; +NOVOINJ3; +ONDA-83; +PANT20TA6; +TRAM50TA2; +TRAM50TA2 PO; +WARF-20; +WARF-23; +ZOLP5TAB
[2024-06-16 12:33] LABS: INR 2.6; PROTHROMBIN TIME 26.9 SECONDS (12.5-14.5)
== END ==
LOC: M PLALAB 09:17
PROVIDERS: ATTEND Nurse Practitioner Family
DX: Z79.01 Long term (current) use of anticoagulants (principal); M19.012 Primary osteoarthritis, left shoulder

== ENCOUNTER 2024-06-26 16:28 | Emergency (ER) | payer MEDICARE, MEDICAID ==
[~2024-06-26] VITALS: Ht 152.4 cm; Wt 78.2 kg
[2024-06-26 19:20] LABS: BASO # 0.1 10^3/uL (0.0-0.2); BASO % 0.5 % (0.0-1.0); EOS # 0.1 10^3/uL (0.0-0.5); EOS % 0.9 % (0.0-3.0); HEMATOCRIT 43.8 % (36.0-47.0); HEMOGLOBIN 13.7 g/dl (12.0-15.5); LYMPH # 3.5 10^3/uL (1.5-5.0); LYMPH % 31.7 % (24.0-44.0); MEAN CORPUSCULAR HEMOGLOBIN 26.9 pg (27.0-33.0); MEAN CORPUSCULAR HGB CONC 31.3 g/dl (32.0-36.5); MEAN CORPUSCULAR VOLUME 85.9 fl (80.0-96.0); MONO # 0.6 10^3/uL (0.0-0.8); NEUTROPHILS # 6.7 10^3/uL (1.5-8.5); NEUTROPHILS % 61.2 % (36.0-66.0); PLATELET COUNT, AUTOMATED 282 10^3/uL (150-450)
[2024-06-26 19:47] LABS: ALBUMIN 3.4 G/DL (3.2-5.2); ALKALINE PHOSPHATASE 224 U/L (46-116); ALT/SGPT 77 U/L (7.0-40); AST/SGOT 33 U/L (<34); BILIRUBIN,TOTAL < 0.2 MG/DL (0.3-1.2); BLOOD UREA NITROGEN 22 MG/DL (9-23); CALCIUM LEVEL 9.5 MG/DL (8.5-10.1); CARBON DIOXIDE LEVEL 26 MMOL/L (20-31); CHLORIDE LEVEL 106 MMOL/L (98-107); CREATININE FOR GFR 0.81 MG/DL (0.55-1.30); GLOMERULAR FILTRATION RATE > 60.0 (>51); GLUCOSE, FASTING 165 MG/DL (60-100); POTASSIUM SERUM 4.3 MMOL/L (3.5-5.1); SODIUM LEVEL 138 MMOL/L (136-145); TOTAL PROTEIN 7.3 G/DL (5.7-8.2)
[2024-06-26 20:07] VITALS: BP 137/77; TEMP 97; O2SAT 98
== END 2024-06-26 20:47 | disposition left against medical advice (07) ==
LOC: M ED 16:28
DX: Z53.21 Procedure and treatment not carried out due to patient leaving prior to being seen by health care provider (principal)

== ENCOUNTER 2024-07-09 03:54 | Inpatient (IN) | payer MEDICARE, OTHER ==
[~2024-07-09] VITALS: Ht 154.9 cm; Wt 81.7 kg
[~2024-07-09 03:54] MED LIST changes: -ATIV1TAB10; +ATIV1TAB10 PO; -ATOR1TAB19; +ATOR1TAB19 PO; -DULO1CAP6; +DULO1CAP6 PO; -GABA-1171; +GABA-1171 PO; -LANTINJ4; +LANTINJ4 SQ; -MAGN64TA3; +MAGN64TA3 PO; -MIRT-10; +MIRT-10 PO; -NOVOINJ3; +NOVOINJ3 SQ; -ONDA-83; +ONDA-83 PO; -TRAM50TA2; -WARF-20; +WARF-20 PO; -WARF-23; +WARF-23 PO
[2024-07-09] MEDS: MORPHINE 2 MG/ML 1ML VIAL IV ONE (05:25)
[2024-07-09] MEDS: PERCOCET 5MG/325MG TAB PO ONE (05:38)
[2024-07-09] MEDS ORDERED: GLUCAGON INJ 1MG VIAL SC PRN (10:00)
[2024-07-09] MEDS ORDERED: GLUCOSE 4 GM CHEW PO PRN (10:00)
[2024-07-09] MEDS ORDERED: DEXTROSE 50% 50ML SYRINGE IV PRN (10:00)
[2024-07-09] MEDS: KETOROLAC 30 MG/ML 1ML VIAL IV ONE (10:42)
[2024-07-09] MEDS ORDERED: PANT40TA29 PO (10:58)
[2024-07-09] MEDS ORDERED: HOME MED LIST COMPLETE! XX SCH (11:05)
[2024-07-09 11:26] LABS: HEMATOCRIT 41.4 % (36.0-47.0); HEMOGLOBIN 13.1 g/dl (12.0-15.5); MEAN CORPUSCULAR HEMOGLOBIN 26.7 pg (27.0-33.0); MEAN CORPUSCULAR HGB CONC 31.6 g/dl (32.0-36.5); MEAN CORPUSCULAR VOLUME 84.5 fl (80.0-96.0); PLATELET COUNT, AUTOMATED 233 10^3/uL (150-450)
[2024-07-09 11:37] LABS: INR 3.37; PROTHROMBIN TIME 32.9 SECONDS (12.5-14.5)
[2024-07-09 11:58] LABS: BLOOD UREA NITROGEN 26 MG/DL (9-23); CARBON DIOXIDE LEVEL 24 MMOL/L (20-31); CHLORIDE LEVEL 112 MMOL/L (98-107); GLOMERULAR FILTRATION RATE > 60.0 (>51); GLUCOSE, FASTING 162 MG/DL (60-100); POTASSIUM SERUM 3.9 MMOL/L (3.5-5.1); SODIUM LEVEL 142 MMOL/L (136-145)
[2024-07-09] MEDS: ACETAMINOPHEN 325 MG TAB PO PRN (12:38)
[2024-07-09] MEDS: INSULIN LISPRO (NovoLOG) PER UNIT SC SCH ×2 (12:38→21:00)
[2024-07-09] MEDS ORDERED: traMADol 50 MG TAB PO PRN (13:50)
[2024-07-09] MEDS: ASPIRIN 81MG ENTERIC TABLET PO SCH (15:16)
[2024-07-09] MEDS: DULoxetine 30MG CAPSULE (CYMBALTA) PO SCH (15:16)
[2024-07-09 19:03] VITALS: BP 176/81
[2024-07-09] MEDS: amLODIPine 5 MG TAB PO ONE (19:03)
[2024-07-09] MEDS: ONDANSETRON 4MG TAB PO PRN (19:03)
[2024-07-09] MEDS: MAGNESIUM GLUCONATE 500 MG TAB PO SCH (21:43)
[2024-07-09] MEDS: ATORVASTATIN 10 MG TAB PO SCH (21:44)
[2024-07-09] MEDS: GABAPENTIN 100 MG CAP PO SCH (21:44)
[2024-07-09] MEDS: MIRTAZAPINE 15 MG TAB PO SCH (21:44)
[2024-07-09] MEDS: LEVEMIR (INSULIN DETEMIR) 1 UNITS/0.01ML SQ SCH (21:44)
[2024-07-09] MEDS: LORazepam 0.5 MG TAB PO SCH (21:44)
[2024-07-10] MEDS ORDERED: ENOXAPARIN 40MG/0.4ML SYRINGE (J1650 PER 10MG) SC SCH (09:00)
[2024-07-10] MEDS: PANTOPRAZOLE 40MG TAB (PROTONIX) PO SCH (09:30)
[2024-07-10] MEDS: traMADol 50 MG TAB PO PRN (10:50)
[2024-07-10] MEDS ORDERED: PILL CUTTER 1 EACH XX ONE (19:57)
[2024-07-10] MEDS: LEVEMIR (INSULIN DETEMIR) 1 UNITS/0.01ML SQ SCH (20:38)
[2024-07-10 21:35] VITALS: BP 123/62; TEMP 97.7; O2SAT 99
[2024-07-10 23:55] LABS: INR 2.38; PARTIAL THROMBOPLASTIN TIME 46.5 SECONDS (24.8-34.2); PROTHROMBIN TIME 25.2 SECONDS (12.5-14.5)
[2024-07-11 04:49] VITALS: BP 106/57; TEMP 98.1; O2SAT 97
[2024-07-11 06:15] LABS: HEMOGLOBIN 12.6 g/dl (12.0-15.5)
[2024-07-11 06:16] LABS: HEMATOCRIT 39.3 % (36.0-47.0); MEAN CORPUSCULAR HEMOGLOBIN 27.4 pg (27.0-33.0); MEAN CORPUSCULAR HGB CONC 32.1 g/dl (32.0-36.5); MEAN CORPUSCULAR VOLUME 85.4 fl (80.0-96.0); PLATELET COUNT, AUTOMATED 247 10^3/uL (150-450)
[2024-07-11 06:34] LABS: INR 2.19; PARTIAL THROMBOPLASTIN TIME 41.1 SECONDS (24.8-34.2); PROTHROMBIN TIME 23.6 SECONDS (12.5-14.5)
[2024-07-11 06:53] LABS: ALKALINE PHOSPHATASE 221 U/L (46-116); ALT/SGPT 101 U/L (7.0-40); AST/SGOT 37 U/L (<34); BILIRUBIN,TOTAL 0.3 MG/DL (0.3-1.2); BLOOD UREA NITROGEN 26 MG/DL (9-23); CALCIUM LEVEL 9.6 MG/DL (8.5-10.1); CARBON DIOXIDE LEVEL 26 MMOL/L (20-31); CHLORIDE LEVEL 107 MMOL/L (98-107); GLOMERULAR FILTRATION RATE > 60.0 (>51); GLUCOSE, FASTING 232 MG/DL (60-100); POTASSIUM SERUM 4.3 MMOL/L (3.5-5.1); SODIUM LEVEL 139 MMOL/L (136-145); TOTAL PROTEIN 6.5 G/DL (5.7-8.2)
[2024-07-11 12:00] VITALS: BP 127/73; TEMP 97.7; O2SAT 95
[2024-07-11] MEDS: SENOKOT S TAB PO SCH (12:38)
[2024-07-11 12:42] LABS: HEPATITIS B SURFACE ANTIGEN NEGATIVE (NEGATIVE)
[2024-07-11 13:03] LABS: HEPATITIS B CORE ANTIBODY IGM NEGATIVE (NEGATIVE); HEPATITIS C VIRUS ABY INDEX < 0.02 INDEX (<0.8)
[2024-07-11] MEDS: WARFARIN SOD 5MG TAB PO SCH (17:09)
[2024-07-11] MEDS: cefTRIAXone SOD 1 GM in D5W MINI-BAG PLUS 50 ML IV SCH (18:17)
[2024-07-11 18:24] VITALS: BP 154/69; TEMP 98.1
[2024-07-11 20:12] VITALS: BP 116/69; TEMP 97.3; O2SAT 96
[2024-07-12 05:32] VITALS: BP 120/68; TEMP 97.7; O2SAT 95
[2024-07-12 09:03] LABS: INR 1.85; PROTHROMBIN TIME 20.7 SECONDS (12.5-14.5)
[2024-07-12 09:04] LABS: BASO % 0.3 % (0.0-1.0); EOS # 0.1 10^3/uL (0.0-0.5); EOS % 0.9 % (0.0-3.0); HEMATOCRIT 40.9 % (36.0-47.0); LYMPH # 2.4 10^3/uL (1.5-5.0); MEAN CORPUSCULAR HEMOGLOBIN 27.5 pg (27.0-33.0); MEAN CORPUSCULAR HGB CONC 31.8 g/dl (32.0-36.5); MEAN CORPUSCULAR VOLUME 86.7 fl (80.0-96.0); MONO # 0.6 10^3/uL (0.0-0.8); MONO % 5.2 % (2.0-8.0); NEUTROPHILS # 8.4 10^3/uL (1.5-8.5); NEUTROPHILS % 71.9 % (36.0-66.0); PLATELET COUNT, AUTOMATED 239 10^3/uL (150-450); RED BLOOD COUNT 4.72 10^6/uL (4.00-5.40); WHITE BLOOD COUNT 11.6 10^3/uL (4.0-10.0)
[2024-07-12 09:21] LABS: ALBUMIN 3.1 G/DL (3.2-5.2); ALKALINE PHOSPHATASE 211 U/L (46-116); ALT/SGPT 81 U/L (7.0-40); AST/SGOT 25 U/L (<34); BILIRUBIN,TOTAL 0.2 MG/DL (0.3-1.2); BLOOD UREA NITROGEN 25 MG/DL (9-23); CALCIUM LEVEL 9.2 MG/DL (8.5-10.1); CARBON DIOXIDE LEVEL 28 MMOL/L (20-31); CHLORIDE LEVEL 107 MMOL/L (98-107); GLOMERULAR FILTRATION RATE > 60.0 (>51); GLUCOSE, FASTING 211 MG/DL (60-100); POTASSIUM SERUM 3.9 MMOL/L (3.5-5.1); SODIUM LEVEL 140 MMOL/L (136-145); TOTAL PROTEIN 6.6 G/DL (5.7-8.2)
[2024-07-12 11:19] VITALS: BP 118/64; TEMP 98.1; O2SAT 95
[2024-07-12 12:00] VITALS: BP 119/66; TEMP 98.1; O2SAT 100
[2024-07-12] MEDS: DULoxetine 30MG CAPSULE (CYMBALTA) PO SCH (12:28)
[2024-07-12] MEDS: WARFARIN SOD 3MG TAB PO ONE (18:10)
[2024-07-12 20:29] VITALS: BP 143/88; TEMP 97.5; O2SAT 99
[2024-07-12] MEDS: LEVEMIR (INSULIN DETEMIR) 1 UNITS/0.01ML SQ SCH (20:56)
[2024-07-13 04:21] VITALS: BP 138/64; TEMP 97.3; O2SAT 97
[2024-07-13 07:20] LABS: BASO % 0.3 % (0.0-1.0); EOS # 0.1 10^3/uL (0.0-0.5); EOS % 1.3 % (0.0-3.0); HEMOGLOBIN 12.6 g/dl (12.0-15.5); LYMPH # 2.9 10^3/uL (1.5-5.0); LYMPH % 25.8 % (24.0-44.0); MEAN CORPUSCULAR HEMOGLOBIN 26.9 pg (27.0-33.0); MEAN CORPUSCULAR HGB CONC 31.5 g/dl (32.0-36.5); MEAN CORPUSCULAR VOLUME 85.3 fl (80.0-96.0); MONO # 0.6 10^3/uL (0.0-0.8); MONO % 5.6 % (2.0-8.0); NEUTROPHILS # 7.4 10^3/uL (1.5-8.5); NEUTROPHILS % 66.5 % (36.0-66.0); PLATELET COUNT, AUTOMATED 248 10^3/uL (150-450); RED BLOOD COUNT 4.69 10^6/uL (4.00-5.40); WHITE BLOOD COUNT 11.1 10^3/uL (4.0-10.0)
[2024-07-13 07:34] LABS: INR 2.22; PROTHROMBIN TIME 23.8 SECONDS (12.5-14.5)
[2024-07-13] MEDS: ERTAPENEM SODIUM 1 GM in NS MINI-BAG PLUS 50 ML IV SCH (08:11)
[2024-07-13] MEDS ORDERED: SENN-52 PO (10:05)
[2024-07-13] MEDS ORDERED: ERTA1INJ3 IJ (10:05)
== END 2024-07-13 12:45 | DRG 914 ==
LOC: EDBD 03:54 → M ED 03:54 → M ED INP 07-10 20:20 → EEVIPCON 07-10 20:20 → M MS5PR 07-10 21:35
PROVIDERS: ADMIT Internal Medicine; ATTEND Internal Medicine
DX: S49.92XA Unspecified injury of left shoulder and upper arm, initial encounter (principal); I69.354 Hemiplegia and hemiparesis following cerebral infarction affecting left non-dominant side; N39.0 Urinary tract infection, site not specified; X50.9XXA Other and unspecified overexertion or strenuous movements or postures, initial encounter; Y92.009 Unspecified place in unspecified non-institutional (private) residence as the place of occurrence of the external cause; I69.398 Other sequelae of cerebral infarction; E11.42 Type 2 diabetes mellitus with diabetic polyneuropathy; E78.5 Hyperlipidemia, unspecified; Z87.891 Personal history of nicotine dependence; F43.10 Post-traumatic stress disorder, unspecified; F41.0 Panic disorder [episodic paroxysmal anxiety]; I48.91 Unspecified atrial fibrillation; I10 Essential (primary) hypertension; H40.9 Unspecified glaucoma; M50.322 Other cervical disc degeneration at C5-C6 level; M50.323 Other cervical disc degeneration at C6-C7 level; R53.1 Weakness; Z90.49 Acquired absence of other specified parts of digestive tract; B96.20 Unspecified Escherichia coli [E. coli] as the cause of diseases classified elsewhere; K21.9 Gastro-esophageal reflux disease without esophagitis; E83.42 Hypomagnesemia; Z66 Do not resuscitate; Z79.01 Long term (current) use of anticoagulants; Z79.4 Long term (current) use of insulin; Z79.899 Other long term (current) drug therapy; Z88.5 Allergy status to narcotic agent; Z88.8 Allergy status to other drugs, medicaments and biological substances; R74.01 Elevation of levels of liver transaminase levels; Z74.1 Need for assistance with personal care; Z74.09 Other reduced mobility

== ENCOUNTER → 2024-07-17 | Outpatient (REF) ==
[~2024-07-17] MED LIST changes: +ERTA1INJ3 IJ; +PANT40TA29 PO; +SENN-52 PO
[2024-07-17 10:22] LABS: BASO % 0.3 % (0.0-1.0); EOS # 0.2 10^3/uL (0.0-0.5); EOS % 1.9 % (0.0-3.0); HEMATOCRIT 41.5 % (36.0-47.0); HEMOGLOBIN 13.4 g/dl (12.0-15.5); LYMPH # 2.9 10^3/uL (1.5-5.0); MEAN CORPUSCULAR HEMOGLOBIN 27.5 pg (27.0-33.0); MEAN CORPUSCULAR HGB CONC 32.3 g/dl (32.0-36.5); MEAN CORPUSCULAR VOLUME 85.2 fl (80.0-96.0); MONO # 0.6 10^3/uL (0.0-0.8); MONO % 4.9 % (2.0-8.0); NEUTROPHILS # 7.9 10^3/uL (1.5-8.5); NEUTROPHILS % 67.3 % (36.0-66.0); PLATELET COUNT, AUTOMATED 293 10^3/uL (150-450); RED BLOOD COUNT 4.87 10^6/uL (4.00-5.40); WHITE BLOOD COUNT 11.8 10^3/uL (4.0-10.0)
[2024-07-17 10:49] LABS: BLOOD UREA NITROGEN 13 MG/DL (9-23); CALCIUM LEVEL 9.8 MG/DL (8.5-10.1); CARBON DIOXIDE LEVEL 25 MMOL/L (20-31); CHLORIDE LEVEL 108 MMOL/L (98-107); CREATININE FOR GFR 0.71 MG/DL (0.55-1.30); GLOMERULAR FILTRATION RATE > 60.0 (>51); GLUCOSE, FASTING 199 MG/DL (60-100); POTASSIUM SERUM 4.2 MMOL/L (3.5-5.1); SODIUM LEVEL 142 MMOL/L (136-145)
== END ==
LOC: SKLAB7 08:04
PROVIDERS: ATTEND Internal Medicine
DX: N39.0 Urinary tract infection, site not specified (principal)

== ENCOUNTER → 2024-08-09 | Outpatient (REF) | LOC: M RAD 11:33 | PROVIDERS: ATTEND Nurse Practitioner Family | DX: Z00.00 Encounter for general adult medical examination without abnormal findings (principal) ==

== ENCOUNTER → 2024-08-09 | Outpatient (REF) ==
[~2024-08-09] MED LIST changes: -CYCL5TAB PO; +CYCL5TAB4 PO
[2024-08-09 11:36] LABS: BASO % 0.4 % (0.0-1.0); EOS # 0.1 10^3/uL (0.0-0.5); HEMATOCRIT 39.3 % (36.0-47.0); LYMPH # 2.8 10^3/uL (1.5-5.0); LYMPH % 27.9 % (24.0-44.0); MEAN CORPUSCULAR HEMOGLOBIN 27.8 pg (27.0-33.0); MEAN CORPUSCULAR HGB CONC 33.1 g/dl (32.0-36.5); MONO # 0.5 10^3/uL (0.0-0.8); MONO % 4.7 % (2.0-8.0); NEUTROPHILS # 6.6 10^3/uL (1.5-8.5); NEUTROPHILS % 65.3 % (36.0-66.0); PLATELET COUNT, AUTOMATED 224 10^3/uL (150-450); RED BLOOD COUNT 4.68 10^6/uL (4.00-5.40); WHITE BLOOD COUNT 10.1 10^3/uL (4.0-10.0)
[2024-08-09 12:04] LABS: ALBUMIN 3.1 G/DL (3.2-5.2); ALKALINE PHOSPHATASE 204 U/L (35-104); ALT/SGPT 44 U/L (7.0-40); AST/SGOT 15 U/L (<34); BILIRUBIN,TOTAL 0.2 MG/DL (0.3-1.2); BLOOD UREA NITROGEN 18 MG/DL (9-23); CALCIUM LEVEL 9.8 MG/DL (8.5-10.1); CARBON DIOXIDE LEVEL 26 MMOL/L (20-31); CHLORIDE LEVEL 101 MMOL/L (98-107); CREATININE FOR GFR 0.69 MG/DL (0.55-1.30); GLOMERULAR FILTRATION RATE > 60.0 (>51); GLUCOSE, FASTING 335 MG/DL (60-100); POTASSIUM SERUM 4.2 MMOL/L (3.5-5.1); SODIUM LEVEL 136 MMOL/L (136-145); TOTAL PROTEIN 6.8 G/DL (5.7-8.2)
== END ==
LOC: SKLAB7 10:16
PROVIDERS: ATTEND Internal Medicine
DX: R30.9 Painful micturition, unspecified (principal)

== ENCOUNTER → 2024-08-17 | Outpatient (REF) ==
[2024-08-17 10:51] LABS: HEMATOCRIT 41.1 % (36.0-47.0); HEMOGLOBIN 13.1 g/dl (12.0-15.5); MEAN CORPUSCULAR HEMOGLOBIN 26.8 pg (27.0-33.0); MEAN CORPUSCULAR HGB CONC 31.9 g/dl (32.0-36.5); PLATELET COUNT, AUTOMATED 254 10^3/uL (150-450); RED BLOOD COUNT 4.89 10^6/uL (4.00-5.40); WHITE BLOOD COUNT 10.5 10^3/uL (4.0-10.0)
[2024-08-17 11:24] LABS: BLOOD UREA NITROGEN 17 MG/DL (9-23); CALCIUM LEVEL 9.8 MG/DL (8.5-10.1); CARBON DIOXIDE LEVEL 26 MMOL/L (20-31); CHLORIDE LEVEL 103 MMOL/L (98-107); CHOLESTEROL LEVEL 139 MG/DL (<200); CHOLESTEROL RISK RATIO 3.17 (<5); CREATININE FOR GFR 0.75 MG/DL (0.55-1.30); GLOMERULAR FILTRATION RATE > 60.0 (>51); GLUCOSE, FASTING 243 MG/DL (60-100); HDL CHOLESTEROL 43.8 MG/DL (>40); LDL CHOLESTEROL 50.6 MG/DL (<100); NON-HDL-C 95.2 MG/DL; POTASSIUM SERUM 3.7 MMOL/L (3.5-5.1); SODIUM LEVEL 140 MMOL/L (136-145); TRIGLYCERIDES LEVEL 223 MG/DL (<150)
== END ==
LOC: SKLAB7 07:00
PROVIDERS: ATTEND Internal Medicine
DX: E78.5 Hyperlipidemia, unspecified (principal); I10 Essential (primary) hypertension

== ENCOUNTER → 2024-08-21 | Outpatient (REF) | payer MEDICAID, MEDICARE, OTHER | LOC: M RAD 10:25 → EDSTATUS 08-22 11:59 | PROVIDERS: ATTEND Nurse Practitioner Family | DX: R52 Pain, unspecified (principal) ==

== ENCOUNTER → 2024-08-28 | Outpatient (REF) | LOC: SKLAB7 07:45 | PROVIDERS: ATTEND Internal Medicine | DX: Z53.9 Procedure and treatment not carried out, unspecified reason (principal) ==

== ENCOUNTER → 2024-09-19 | Outpatient (REF) | payer MEDICARE, MEDICAID ==
[2024-09-19 15:44] LABS: BASO % 0.4 % (0.0-1.0); EOS # 0.1 10^3/uL (0.0-0.5); EOS % 0.8 % (0.0-3.0); HEMATOCRIT 41.8 % (36.0-47.0); HEMOGLOBIN 13.4 g/dl (12.0-15.5); LYMPH # 2.9 10^3/uL (1.5-5.0); LYMPH % 30.6 % (24.0-44.0); MEAN CORPUSCULAR HEMOGLOBIN 27.2 pg (27.0-33.0); MEAN CORPUSCULAR HGB CONC 32.1 g/dl (32.0-36.5); MEAN CORPUSCULAR VOLUME 84.8 fl (80.0-96.0); MONO # 0.7 10^3/uL (0.0-0.8); MONO % 6.9 % (2.0-8.0); NEUTROPHILS # 5.7 10^3/uL (1.5-8.5); NEUTROPHILS % 60.8 % (36.0-66.0); PLATELET COUNT, AUTOMATED 249 10^3/uL (150-450); RED BLOOD COUNT 4.93 10^6/uL (4.00-5.40); WHITE BLOOD COUNT 9.4 10^3/uL (4.0-10.0)
[2024-09-19 16:02] LABS: LIPASE 34 U/L (12-53)
[2024-09-19 16:04] LABS: ALBUMIN 3.2 G/DL (3.2-5.2); ALKALINE PHOSPHATASE 191 U/L (35-104); ALT/SGPT 31 U/L (7.0-40); AMYLASE 42 U/L (30-118); AST/SGOT 13 U/L (<34); BILIRUBIN,TOTAL < 0.2 MG/DL (0.3-1.2); BLOOD UREA NITROGEN 32 MG/DL (9-23); CALCIUM LEVEL 9.7 MG/DL (8.5-10.1); CARBON DIOXIDE LEVEL 26 MMOL/L (20-31); CHLORIDE LEVEL 102 MMOL/L (98-107); CREATININE FOR GFR 1.07 MG/DL (0.55-1.30); GLOMERULAR FILTRATION RATE 56.3 (>51); GLUCOSE, FASTING 218 MG/DL (60-100); POTASSIUM SERUM 4.3 MMOL/L (3.5-5.1); SODIUM LEVEL 140 MMOL/L (136-145); TOTAL PROTEIN 7.4 G/DL (5.7-8.2)
== END ==
LOC: SKLAB4 14:35
PROVIDERS: ATTEND Internal Medicine
DX: R10.9 Unspecified abdominal pain (principal)

== ENCOUNTER → 2024-10-02 | Outpatient (REF) | payer MEDICARE, MEDICAID ==
[2024-10-02 12:22] LABS: CALCIUM LEVEL 9.5 MG/DL (8.5-10.1); CREATININE FOR GFR 1.06 MG/DL (0.55-1.30); GLOMERULAR FILTRATION RATE 56.9 (>51); POTASSIUM SERUM 4.4 MMOL/L (3.5-5.1)
== END ==
LOC: SKLAB4 07:00
PROVIDERS: ATTEND Internal Medicine
DX: I10 Essential (primary) hypertension (principal)

== ENCOUNTER → 2024-10-13 | Outpatient (REF) | payer MEDICARE, MEDICAID ==
[2024-10-13 13:19] LABS: HEMOGLOBIN A1c 9.1 % (4.0-6.0)
== END ==
LOC: SKLAB4 11:22
PROVIDERS: ATTEND Internal Medicine
DX: E11.9 Type 2 diabetes mellitus without complications (principal)

== ENCOUNTER → 2024-10-22 | Outpatient (REF) | payer MEDICARE, MEDICAID | LOC: M RAD 13:45 | PROVIDERS: ATTEND Physician Assistant | DX: M25.552 Pain in left hip (principal) ==

== ENCOUNTER → 2024-11-01 | Outpatient (REF) | payer MEDICARE, MEDICAID ==
[2024-11-01 20:58] LABS: APPEARANCE, URINE CLEAR (CLEAR); BACTERIA, URINE AUTO NEGATIVE (NEGATIVE); BILIRUBIN, URINE AUTO NEGATIVE (NEGATIVE); BLOOD, URINE BLOOD 2+ (NEGATIVE); COLOR, URINE STRAW (YELLOW); GLUCOSE, URINE (UA) AUTO 3+ mg/dL (NEGATIVE); KETONE, URINE AUTO NEGATIVE (NEGATIVE); LEUKOCYTE ESTERASE, URINE AUTO NEGATIVE (NEGATIVE); NITRITE, URINE AUTO NEGATIVE (NEGATIVE); PROTEIN, URINE AUTO NEGATIVE (NEGATIVE); RBC, URINE AUTO 2 /HPF (0-3); SQUAMOUS EPITHELIAL CELL UR AU 2 /HPF (0-6); UROBILINOGEN, URINE AUTO 0.2 mg/dL (0.0-2.0); WBC, URINE AUTO 18 /HPF (0-3)
== END ==
LOC: SKLAB4 15:08
PROVIDERS: ATTEND Internal Medicine
DX: R31.9 Hematuria, unspecified (principal); R32 Unspecified urinary incontinence

== ENCOUNTER → 2024-11-16 | Outpatient (CLI) | payer MEDICARE, MEDICAID | LOC: M RAD 14:08 | PROVIDERS: ATTEND Nurse Practitioner Family | DX: M17.12 Unilateral primary osteoarthritis, left knee (principal) ==

== ENCOUNTER 2024-11-20 21:14 | Emergency (ER) | payer MEDICARE, MEDICAID ==
[~2024-11-20] VITALS: Ht 152.4 cm; Wt 91.4 kg
[2024-11-20 21:42] LABS: BASO # 0.1 10^3/uL (0.0-0.2); BASO % 0.4 % (0.0-1.0); EOS # 0.1 10^3/uL (0.0-0.5); EOS % 0.8 % (0.0-3.0); HEMATOCRIT 40.2 % (36.0-47.0); HEMOGLOBIN 13.1 g/dl (12.0-15.5); LYMPH # 4.1 10^3/uL (1.5-5.0); LYMPH % 33.4 % (24.0-44.0); MEAN CORPUSCULAR HEMOGLOBIN 27.8 pg (27.0-33.0); MEAN CORPUSCULAR HGB CONC 32.6 g/dl (32.0-36.5); MEAN CORPUSCULAR VOLUME 85.2 fl (80.0-96.0); MONO # 0.6 10^3/uL (0.0-0.8); NEUTROPHILS # 7.4 10^3/uL (1.5-8.5); NEUTROPHILS % 59.8 % (36.0-66.0); PLATELET COUNT, AUTOMATED 230 10^3/uL (150-450); RED BLOOD COUNT 4.72 10^6/uL (4.00-5.40); WHITE BLOOD COUNT 12.3 10^3/uL (4.0-10.0)
[2024-11-20 22:07] LABS: LIPASE 33 U/L (12-53)
[2024-11-20 22:10] LABS: ALBUMIN 3.4 G/DL (3.2-5.2); ALKALINE PHOSPHATASE 157 U/L (35-104); ALT/SGPT 39 U/L (7.0-40); AST/SGOT 26 U/L (<34); BILIRUBIN,DIRECT < 0.1 MG/DL (<0.4); BILIRUBIN,TOTAL 0.2 MG/DL (0.3-1.2); BLOOD UREA NITROGEN 17 MG/DL (9-23); CALCIUM LEVEL 9.2 MG/DL (8.5-10.1); CARBON DIOXIDE LEVEL 24 MMOL/L (20-31); CHLORIDE LEVEL 105 MMOL/L (98-107); CREATININE FOR GFR 0.73 MG/DL (0.55-1.30); GLOMERULAR FILTRATION RATE > 60.0 (>51); GLUCOSE, FASTING 205 MG/DL (60-100); POTASSIUM SERUM 4.7 MMOL/L (3.5-5.1); SODIUM LEVEL 140 MMOL/L (136-145); TOTAL PROTEIN 7.3 G/DL (5.7-8.2)
[2024-11-20 22:30] LABS: CK-MB VALUE MASS < 1.0 NG/ML (<3.6)
[2024-11-20 22:37] LABS: CPK CREATINE PHOSPHOKINASE 39 U/L (34-145); MB/CK RELATIVE INDEX 2.56 (< OR =4)
[2024-11-20 22:47] LABS: INR 1.05; PARTIAL THROMBOPLASTIN TIME 24.3 SECONDS (24.8-34.2)
[2024-11-20] MEDS: PANTOPRAZOLE 40MG VIAL IV ONE (22:49)
[2024-11-20] MEDS: GASTROGRAFIN SOLUTION 30ML PO SCH (22:49)
[2024-11-20] MEDS ORDERED: ISOVUE-370 76% 100ML VIAL As Ordered ONE (23:58)
[2024-11-21 00:02] LABS: CK-MB VALUE MASS < 1.0 NG/ML (<3.6)
[2024-11-21 00:03] LABS: CPK CREATINE PHOSPHOKINASE 28 U/L (34-145); MB/CK RELATIVE INDEX 3.57 (< OR =4)
[2024-11-21 00:53] LABS: KETONE, URINE AUTO RFX NEGATIVE (NEGATIVE); NITRITE, URINE AUTO RFX NEGATIVE (NEGATIVE); RBC, URINE AUTO RFX 0 /HPF (0-3); SQUAM EPITHELIAL CELL UR AURFX 0 /HPF (0-6); WBC, URINE AUTO RFX 10 /HPF (0-3)
[2024-11-21 00:55] LABS: LEUKOCYTE ESTERASE UR AUTO RFX 1+ (NEGATIVE)
[2024-11-21] MEDS: ACETAMINOPHEN *IV* 1,000 MG in IV 1 EA IV ONE (05:30)
[2024-11-21] MEDS: FAMOTIDINE IV BAG 20 MG in IV 1 EA IV ONE (05:51)
[2024-11-21] MEDS ORDERED: PEPC1TAB5 PO (07:14)
[2024-11-21 07:53] VITALS: BP 102/58; TEMP 97; O2SAT 96
== END 2024-11-21 08:25 | disposition home or self-care (01) ==
LOC: M ED 21:14
DX: R10.811 Right upper quadrant abdominal tenderness (principal); K76.0 Fatty (change of) liver, not elsewhere classified; I69.398 Other sequelae of cerebral infarction; I48.91 Unspecified atrial fibrillation; E11.9 Type 2 diabetes mellitus without complications; I10 Essential (primary) hypertension; F41.9 Anxiety disorder, unspecified; F32.A Depression, unspecified; E78.5 Hyperlipidemia, unspecified; F17.210 Nicotine dependence, cigarettes, uncomplicated; Z88.5 Allergy status to narcotic agent; Z88.8 Allergy status to other drugs, medicaments and biological substances; Z79.1 Long term (current) use of non-steroidal anti-inflammatories (NSAID); Z79.4 Long term (current) use of insulin; Z79.01 Long term (current) use of anticoagulants; Z79.899 Other long term (current) drug therapy
CPT/HCPCS: 51701; 74177; 76705; 80048; 80076; 81001; 82550; 82553; 83605; 83690; 84484; 85025; 85610; 85730; 87088; 87186; 93005; 93041; 96365; 96375; 99285; J0131; J2470; Q9963; Q9967

== ENCOUNTER 2024-12-15 21:25 | Emergency (ER) | payer MEDICARE, MEDICAID ==
[~2024-12-15] VITALS: Ht 152.4 cm; Wt 90.8 kg
[~2024-12-15 21:25] MED LIST changes: +PEPC1TAB5 PO
[2024-12-15 22:17] LABS: HEMATOCRIT 39.8 % (36.0-47.0); MEAN CORPUSCULAR HEMOGLOBIN 27.3 pg (27.0-33.0); MEAN CORPUSCULAR HGB CONC 32.7 g/dl (32.0-36.5); MEAN CORPUSCULAR VOLUME 83.4 fl (80.0-96.0); PLATELET COUNT, AUTOMATED 225 10^3/uL (150-450); RED BLOOD COUNT 4.77 10^6/uL (4.00-5.40); WHITE BLOOD COUNT 13.6 10^3/uL (4.0-10.0)
[2024-12-15] MEDS: ONDANSETRON 4MG 2ML VIAL IV ONE (22:17)
[2024-12-15] MEDS: MORPHINE 4 MG/ML 1ML VIAL IV ONE (22:17)
[2024-12-15 22:28] LABS: INR 1.02; PROTHROMBIN TIME 13.7 SECONDS (12.5-14.5)
[2024-12-16 00:15] VITALS: BP 123/74; TEMP 97.7
[2024-12-16 00:26] VITALS: O2SAT 96
[2024-12-16] MEDS: traMADol 50 MG TAB PO ONE (00:26)
== END 2024-12-16 00:29 | disposition home or self-care (01) ==
LOC: M ED 21:25
DX: S00.83XA Contusion of other part of head, initial encounter (principal); S80.02XA Contusion of left knee, initial encounter; W01.198A Fall on same level from slipping, tripping and stumbling with subsequent striking against other object, initial encounter; E11.9 Type 2 diabetes mellitus without complications; I10 Essential (primary) hypertension; F41.9 Anxiety disorder, unspecified; F43.10 Post-traumatic stress disorder, unspecified; E78.5 Hyperlipidemia, unspecified; Z88.5 Allergy status to narcotic agent; Z88.8 Allergy status to other drugs, medicaments and biological substances; Z79.01 Long term (current) use of anticoagulants; Z79.82 Long term (current) use of aspirin; Z79.4 Long term (current) use of insulin; Z79.899 Other long term (current) drug therapy; Y92.009 Unspecified place in unspecified non-institutional (private) residence as the place of occurrence of the external cause; Y93.89 Activity, other specified; Y99.9 Unspecified external cause status
CPT/HCPCS: 70450; 70486; 72125; 73564; 80047; 85027; 85610; 96374; 99285; J2405

== ENCOUNTER → 2025-01-02 | Outpatient (REF) | payer MEDICARE, MEDICAID | LOC: SKLAB4 18:25 | PROVIDERS: ATTEND Nurse Practitioner Family | DX: R30.0 Dysuria (principal); Z53.9 Procedure and treatment not carried out, unspecified reason ==

== ENCOUNTER → 2025-01-02 | Outpatient (REF) | payer MEDICARE, MEDICAID ==
[2025-01-02 14:21] LABS: BASO # 0.1 10^3/uL (0.0-0.2); BASO % 0.4 % (0.0-1.0); EOS # 0.1 10^3/uL (0.0-0.5); EOS % 0.8 % (0.0-3.0); HEMATOCRIT 41.5 % (36.0-47.0); HEMOGLOBIN 13.1 g/dl (12.0-15.5); LYMPH % 25.4 % (24.0-44.0); MEAN CORPUSCULAR HEMOGLOBIN 26.7 pg (27.0-33.0); MEAN CORPUSCULAR HGB CONC 31.6 g/dl (32.0-36.5); MEAN CORPUSCULAR VOLUME 84.5 fl (80.0-96.0); MONO # 0.7 10^3/uL (0.0-0.8); MONO % 6.2 % (2.0-8.0); NEUTROPHILS # 7.8 10^3/uL (1.5-8.5); NEUTROPHILS % 66.7 % (36.0-66.0); PLATELET COUNT, AUTOMATED 261 10^3/uL (150-450); RED BLOOD COUNT 4.91 10^6/uL (4.00-5.40); WHITE BLOOD COUNT 11.8 10^3/uL (4.0-10.0)
[2025-01-02 14:38] LABS: BLOOD UREA NITROGEN 14 MG/DL (9-23); CALCIUM LEVEL 9.4 MG/DL (8.5-10.1); CARBON DIOXIDE LEVEL 23 MMOL/L (20-31); CHLORIDE LEVEL 105 MMOL/L (98-107); CREATININE FOR GFR 0.96 MG/DL (0.55-1.30); GLOMERULAR FILTRATION RATE > 60.0 (>51); GLUCOSE, FASTING 164 MG/DL (60-100); POTASSIUM SERUM 4.3 MMOL/L (3.5-5.1); SODIUM LEVEL 138 MMOL/L (136-145)
== END ==
LOC: SKLAB4 13:34
PROVIDERS: ATTEND Internal Medicine
DX: R42 Dizziness and giddiness (principal); R30.0 Dysuria

== ENCOUNTER → 2025-01-02 | Outpatient (REF) | payer MEDICARE, MEDICAID ==
[2025-01-02 19:06] LABS: APPEARANCE, URINE CLEAR (CLEAR); BACTERIA, URINE AUTO NEGATIVE (NEGATIVE); BILIRUBIN, URINE AUTO NEGATIVE (NEGATIVE); BLOOD, URINE BLOOD NEGATIVE (NEGATIVE); COLOR, URINE YELLOW (YELLOW); GLUCOSE, URINE (UA) AUTO 3+ mg/dL (NEGATIVE); KETONE, URINE AUTO NEGATIVE (NEGATIVE); LEUKOCYTE ESTERASE, URINE AUTO NEGATIVE (NEGATIVE); MUCUS, URINE SMALL (NEGATIVE); NITRITE, URINE AUTO NEGATIVE (NEGATIVE); PROTEIN, URINE AUTO 1+ mg/dL (NEGATIVE); RBC, URINE AUTO 1 /HPF (0-3); SPECIFIC GRAVITY URINE AUTO 1.021 (1.002-1.035); SQUAMOUS EPITHELIAL CELL UR AU 2 /HPF (0-6); UROBILINOGEN, URINE AUTO 0.2 mg/dL (0.0-2.0); WBC, URINE AUTO 0 /HPF (0-3)
== END ==
LOC: SKLAB4 15:11
PROVIDERS: ATTEND Internal Medicine
DX: R30.0 Dysuria (principal)

== ENCOUNTER 2025-01-08 18:33 | Emergency (ER) | payer MEDICARE, MEDICAID ==
[~2025-01-08] VITALS: Ht 152.4 cm; Wt 85.5 kg
[2025-01-08 19:25] LABS: BASO # 0.1 10^3/uL (0.0-0.2); BASO % 0.4 % (0.0-1.0); EOS # 0.1 10^3/uL (0.0-0.5); EOS % 0.9 % (0.0-3.0); HEMATOCRIT 39.3 % (36.0-47.0); HEMOGLOBIN 12.8 g/dl (12.0-15.5); LYMPH # 3.6 10^3/uL (1.5-5.0); MEAN CORPUSCULAR HEMOGLOBIN 27.4 pg (27.0-33.0); MEAN CORPUSCULAR HGB CONC 32.6 g/dl (32.0-36.5); MONO # 0.8 10^3/uL (0.0-0.8); MONO % 5.9 % (2.0-8.0); NEUTROPHILS # 8.2 10^3/uL (1.5-8.5); NEUTROPHILS % 64.4 % (36.0-66.0); PLATELET COUNT, AUTOMATED 222 10^3/uL (150-450); RED BLOOD COUNT 4.68 10^6/uL (4.00-5.40); WHITE BLOOD COUNT 12.7 10^3/uL (4.0-10.0)
[2025-01-08] MEDS: LORazepam 2 MG/ML 1ML VIAL IV STA (20:34)
[2025-01-08] MEDS: KETOROLAC 30 MG/ML 1ML VIAL IV ONE (20:34)
[2025-01-08 20:55] LABS: ALBUMIN 3.4 G/DL (3.2-5.2); ALKALINE PHOSPHATASE 140 U/L (35-104); ALT/SGPT 30 U/L (7.0-40); AST/SGOT 31 U/L (<34); BILIRUBIN,DIRECT < 0.1 MG/DL (<0.4); BILIRUBIN,TOTAL 0.2 MG/DL (0.3-1.2); BLOOD UREA NITROGEN 13 MG/DL (9-23); CALCIUM LEVEL 9.2 MG/DL (8.5-10.1); CARBON DIOXIDE LEVEL 21 MMOL/L (20-31); CHLORIDE LEVEL 108 MMOL/L (98-107); CK-MB VALUE MASS < 1.0 NG/ML (<3.6); CPK CREATINE PHOSPHOKINASE 46 U/L (34-145); CREATININE FOR GFR 0.78 MG/DL (0.55-1.30); GLOMERULAR FILTRATION RATE > 60.0 (>51); GLUCOSE, FASTING 128 MG/DL (60-100); LIPASE 28 U/L (12-53); MB/CK RELATIVE INDEX 2.17 (< OR =4); POTASSIUM SERUM 4.4 MMOL/L (3.5-5.1); SODIUM LEVEL 140 MMOL/L (136-145); TOTAL PROTEIN 6.8 G/DL (5.7-8.2)
[2025-01-08] MEDS ORDERED: ISOVUE-370 76% 100ML VIAL As Ordered ONE (21:00)
[2025-01-08 22:03] LABS: CK-MB VALUE MASS < 1.0 NG/ML (<3.6)
[2025-01-08 22:04] LABS: CPK CREATINE PHOSPHOKINASE 23 U/L (34-145); MB/CK RELATIVE INDEX 4.34 (< OR =4)
[2025-01-09 00:30] VITALS: BP 110/55; TEMP 98.2; O2SAT 94
== END 2025-01-09 00:45 | disposition home or self-care (01) ==
LOC: EDBD 18:33 → M ED 18:33
DX: R07.9 Chest pain, unspecified (principal); F41.9 Anxiety disorder, unspecified; I48.91 Unspecified atrial fibrillation; E11.9 Type 2 diabetes mellitus without complications; I10 Essential (primary) hypertension; E78.5 Hyperlipidemia, unspecified; F43.10 Post-traumatic stress disorder, unspecified; Z87.891 Personal history of nicotine dependence; Z86.73 Personal history of transient ischemic attack (TIA), and cerebral infarction without residual deficits; Z88.5 Allergy status to narcotic agent; Z88.8 Allergy status to other drugs, medicaments and biological substances; Z79.1 Long term (current) use of non-steroidal anti-inflammatories (NSAID); Z79.4 Long term (current) use of insulin; Z79.01 Long term (current) use of anticoagulants; Z79.899 Other long term (current) drug therapy
CPT/HCPCS: 71045; 71275; 74177; 80048; 80076; 82550; 82553; 83690; 84484; 85025; 87486; 87581; 87633; 87798; 93005; 93041; 94760; 96374; 99285; J1885; J2060; Q9967

== ENCOUNTER → 2025-01-22 | Outpatient (REF) | payer MEDICARE, MEDICAID | LOC: SKLAB4 13:43 | PROVIDERS: ATTEND Internal Medicine | DX: M25.511 Pain in right shoulder (principal); W19.XXXA Unspecified fall, initial encounter; Y92.129 Unspecified place in nursing home as the place of occurrence of the external cause; Y93.9 Activity, unspecified; M19.011 Primary osteoarthritis, right shoulder ==

== ENCOUNTER → 2025-01-23 | Outpatient (REF) | payer MEDICARE, MEDICAID ==
[2025-01-23 02:39] LABS: APPEARANCE, URINE HAZY (CLEAR); BACTERIA, URINE AUTO 1+ (NEGATIVE); BILIRUBIN, URINE AUTO NEGATIVE (NEGATIVE); BLOOD, URINE BLOOD NEGATIVE (NEGATIVE); COLOR, URINE YELLOW (YELLOW); GLUCOSE, URINE (UA) AUTO 3+ mg/dL (NEGATIVE); KETONE, URINE AUTO NEGATIVE (NEGATIVE); LEUKOCYTE ESTERASE, URINE AUTO NEGATIVE (NEGATIVE); MUCUS, URINE SMALL (NEGATIVE); NITRITE, URINE AUTO POSITIVE (NEGATIVE); PROTEIN, URINE AUTO 1+ mg/dL (NEGATIVE); RBC, URINE AUTO 17 /HPF (0-3); SPECIFIC GRAVITY URINE AUTO 1.032 (1.002-1.035); SQUAMOUS EPITHELIAL CELL UR AU 10 /HPF (0-6); UROBILINOGEN, URINE AUTO 0.2 mg/dL (0.0-2.0); WBC, URINE AUTO 5 /HPF (0-3); YEAST LIKE CELL URINE AUTO SMALL
[2025-01-23 03:45] LABS: CREATININE, URINE 72.2 MG/DL; MAU/CREAT RATIO 88.6 MCG/MG (0.0-30.0)
[2025-01-23 08:17] LABS: CREATININE FOR GFR 0.87 MG/DL (0.55-1.30); GLOMERULAR FILTRATION RATE 77.2 (>51)
[2025-01-23 08:24] LABS: HEMOGLOBIN A1c 8.6 % (4.0-6.0)
== END ==
LOC: SKLAB4 07:00
PROVIDERS: ATTEND Internal Medicine
DX: E11.9 Type 2 diabetes mellitus without complications (principal)

== ENCOUNTER → 2025-01-24 | Outpatient (REF) | payer MEDICARE, MEDICAID ==
[2025-01-24 16:14] LABS: APPEARANCE, URINE CLEAR (CLEAR); BACTERIA, URINE AUTO NEGATIVE (NEGATIVE); BILIRUBIN, URINE AUTO NEGATIVE (NEGATIVE); BLOOD, URINE BLOOD NEGATIVE (NEGATIVE); COLOR, URINE YELLOW (YELLOW); GLUCOSE, URINE (UA) AUTO 3+ mg/dL (NEGATIVE); KETONE, URINE AUTO NEGATIVE (NEGATIVE); LEUKOCYTE ESTERASE, URINE AUTO NEGATIVE (NEGATIVE); NITRITE, URINE AUTO NEGATIVE (NEGATIVE); PROTEIN, URINE AUTO NEGATIVE (NEGATIVE); RBC, URINE AUTO 1 /HPF (0-3); SPECIFIC GRAVITY URINE AUTO 1.025 (1.002-1.035); SQUAMOUS EPITHELIAL CELL UR AU 0 /HPF (0-6); UROBILINOGEN, URINE AUTO 0.2 mg/dL (0.0-2.0); WBC, URINE AUTO 0 /HPF (0-3)
== END ==
LOC: SKLAB4 13:06
PROVIDERS: ATTEND Internal Medicine
DX: R30.0 Dysuria (principal)

== ENCOUNTER → 2025-02-08 | Outpatient (REF) | payer MEDICARE, MEDICAID ==
[~2025-02-08] MED LIST changes: +BASA100I SQ; +BUSP5TA PO; +FAMO1TAB11 PO; +MECL-86 PO; +METF500T13 PO; +TRAM1TAB42 PO; +TRAZ-252 PO; +TRUL0.5I
[2025-02-08 14:43] LABS: BASO % 0.3 % (0.0-1.0); EOS # 0.1 10^3/uL (0.0-0.5); EOS % 1.1 % (0.0-3.0); HEMATOCRIT 39.1 % (36.0-47.0); HEMOGLOBIN 12.5 g/dl (12.0-15.5); LYMPH # 2.8 10^3/uL (1.5-5.0); LYMPH % 28.8 % (24.0-44.0); MEAN CORPUSCULAR HEMOGLOBIN 27.5 pg (27.0-33.0); MEAN CORPUSCULAR VOLUME 86.1 fl (80.0-96.0); MONO # 0.6 10^3/uL (0.0-0.8); MONO % 6.2 % (2.0-8.0); NEUTROPHILS % 62.9 % (36.0-66.0); PLATELET COUNT, AUTOMATED 199 10^3/uL (150-450); RED BLOOD COUNT 4.54 10^6/uL (4.00-5.40); WHITE BLOOD COUNT 9.6 10^3/uL (4.0-10.0)
[2025-02-08 15:18] LABS: CALCIUM LEVEL 9.1 MG/DL (8.5-10.1); CREATININE FOR GFR 0.98 MG/DL (0.55-1.30); GLOMERULAR FILTRATION RATE 66.9 (>51); MAGNESIUM LEVEL 1.8 MG/DL (1.8-2.4); POTASSIUM SERUM 4.1 MMOL/L (3.5-5.1)
[2025-02-08 15:20] LABS: THYROID STIMULATING HORMONE 0.898 uIU/ML (0.55-4.78)
== END ==
LOC: SKLAB4 14:00
PROVIDERS: ATTEND Internal Medicine
DX: E53.8 Deficiency of other specified B group vitamins (principal); E83.42 Hypomagnesemia; R42 Dizziness and giddiness

== ENCOUNTER → 2025-02-08 | Outpatient (CLI) | payer MEDICARE, MEDICAID | LOC: M RAD 12:50 | PROVIDERS: ATTEND Nurse Practitioner Family | DX: R51.9 Headache, unspecified (principal); R42 Dizziness and giddiness; R11.12 Projectile vomiting ==

== ENCOUNTER → 2025-04-26 | Outpatient (REF) | payer MEDICARE ==
[2025-04-26 11:22] LABS: ESTIMATED AVERAGE GLUCOSE 157.0 MG/DL (60-110)
== END ==
LOC: SKLAB4 07:00
PROVIDERS: ATTEND Internal Medicine
DX: E11.9 Type 2 diabetes mellitus without complications (principal)

== ENCOUNTER → 2025-06-20 | Outpatient (REF) | payer MEDICARE, MEDICAID ==
[~2025-06-20] MED LIST changes: +ZOLP10TA11 PO; -ZOLP10TA2 PO; -ZOLP5TAB; +ZOLP5TAB9
[2025-06-20 11:29] LABS: PLATELET COUNT, AUTOMATED 239 10^3/uL (150-450)
[2025-06-20 11:59] LABS: CALCIUM LEVEL 9.1 MG/DL (8.5-10.1); CARBON DIOXIDE LEVEL 24.0 MMOL/L (20-31); CHLORIDE LEVEL 106.0 MMOL/L (98-107); CHOLESTEROL LEVEL 91.0 MG/DL (<200); CHOLESTEROL RISK RATIO 2.59 (<5); CREATININE FOR GFR 0.92 MG/DL (0.55-1.30); GLOMERULAR FILTRATION RATE 72.2 (>51); LDL CHOLESTEROL 19.1 MG/DL (<100); NON-HDL-C 55.9 MG/DL; POTASSIUM SERUM 4.5 MMOL/L (3.5-5.1); SODIUM LEVEL 139.0 MMOL/L (136-145); TRIGLYCERIDES LEVEL 184.0 MG/DL (<150)
[2025-06-20 12:08] LABS: ESTIMATED AVERAGE GLUCOSE 143.0 MG/DL (60-110)
== END ==
LOC: SKLAB4 07:00
PROVIDERS: ATTEND Nurse Practitioner Adult Health
DX: E11.22 Type 2 diabetes mellitus with diabetic chronic kidney disease (principal); N18.9 Chronic kidney disease, unspecified

== ENCOUNTER → 2025-08-02 | Outpatient (REF) | payer MEDICARE, MEDICAID ==
[2025-08-02 09:57] LABS: ESTIMATED AVERAGE GLUCOSE 126.0 MG/DL (60-110)
== END ==
LOC: SKLAB4 07:00
PROVIDERS: ATTEND Family Medicine
DX: E11.9 Type 2 diabetes mellitus without complications (principal)

== ENCOUNTER 2025-08-19 06:14 | Emergency (ER) | payer MEDICARE, MEDICAID ==
[~2025-08-19] VITALS: Ht 165.1 cm; Wt 73.5 kg
[2025-08-19 06:40] LABS: BASO # 0.1 10^3/uL (0.0-0.2); BASO % 0.4 % (0.0-1.0); EOS # 0.1 10^3/uL (0.0-0.5); EOS % 1.0 % (0.0-3.0); LYMPH # 3.2 10^3/uL (1.5-5.0); LYMPH % 27.5 % (24.0-44.0); MONO # 0.7 10^3/uL (0.0-0.8); MONO % 6.1 % (2.0-8.0); NEUTROPHILS # 7.5 10^3/uL (1.5-8.5); NEUTROPHILS % 64.3 % (36.0-66.0); PLATELET COUNT, AUTOMATED 286 10^3/uL (150-450)
[2025-08-19 07:06] LABS: ALT/SGPT 20 U/L (7.0-40); AST/SGOT 25 U/L (<34); CALCIUM LEVEL 9.2 MG/DL (8.5-10.1); CARBON DIOXIDE LEVEL 24 MMOL/L (20-31); CHLORIDE LEVEL 105 MMOL/L (98-107); CREATININE FOR GFR 0.79 MG/DL (0.55-1.30); GLOMERULAR FILTRATION RATE 86.7 (>51); POTASSIUM SERUM 4.6 MMOL/L (3.5-5.1); SODIUM LEVEL 141 MMOL/L (136-145)
[2025-08-19 08:05] LABS: KETONE, URINE AUTO RFX NEGATIVE (NEGATIVE); MUCUS, URINE RFX SMALL (NEGATIVE); RBC, URINE AUTO RFX 1 /HPF (0-3); SQUAM EPITHELIAL CELL UR AURFX 2 /HPF (0-6)
[2025-08-19 08:07] LABS: LEUKOCYTE ESTERASE UR AUTO RFX 2+ (NEGATIVE); NITRITE, URINE AUTO RFX POSITIVE (NEGATIVE); WBC, URINE AUTO RFX 25 /HPF (0-3)
[2025-08-19] MEDS ORDERED: ISOVUE-370 76% 100 ML VIAL As Ordered ONE (08:22)
[2025-08-19] MEDS: MORPHINE 2 MG/ML 1 ML VIAL IV PRN (08:26)
[2025-08-19] MEDS: ONDANSETRON 4MG/2ML VIAL IV ONE (08:26)
[2025-08-19] MEDS: ACETAMINOPHEN *IV* 1,000 MG in IV 1 EA IV ONE (08:46)
[2025-08-19] MEDS: NS 500 ML IV ONE ×2 (08:46→09:50)
[2025-08-19 09:36] LABS: CK-MB VALUE MASS < 1.0 NG/ML (<3.6)
[2025-08-19 09:39] LABS: CPK CREATINE PHOSPHOKINASE 23 U/L (34-145)
[2025-08-19 10:02] LABS: CK-MB VALUE MASS < 1.0 NG/ML (<3.6)
[2025-08-19 10:11] LABS: CPK CREATINE PHOSPHOKINASE 18 U/L (34-145)
[2025-08-19] MEDS ORDERED: NITR-67 PO (10:27)
[2025-08-19 10:30] VITALS: BP 107/63; O2SAT 94
[2025-08-19] MEDS: NITROFURANTOIN 100 MG CAP PO ONE (10:42)
[2025-08-19 10:45] VITALS: TEMP 97.6
== END 2025-08-19 10:48 | disposition home or self-care (01) ==
LOC: M ED 06:14
DX: R10.9 Unspecified abdominal pain (principal); N39.0 Urinary tract infection, site not specified; R00.1 Bradycardia, unspecified; I48.91 Unspecified atrial fibrillation; E11.9 Type 2 diabetes mellitus without complications; I10 Essential (primary) hypertension; E78.00 Pure hypercholesterolemia, unspecified; G47.33 Obstructive sleep apnea (adult) (pediatric); E78.5 Hyperlipidemia, unspecified; F41.9 Anxiety disorder, unspecified; F32.A Depression, unspecified; Z88.5 Allergy status to narcotic agent; Z88.8 Allergy status to other drugs, medicaments and biological substances; Z79.1 Long term (current) use of non-steroidal anti-inflammatories (NSAID); Z79.01 Long term (current) use of anticoagulants; Z79.84 Long term (current) use of oral hypoglycemic drugs; Z79.899 Other long term (current) drug therapy
CPT/HCPCS: 71045; 74177; 80048; 80076; 81001; 82550; 82553; 83605; 83690; 84484; 85025; 87088; 87186; 93005; 93041; 96361; 96365; 96375; 99285; J0134; J2405; Q9967

== ENCOUNTER → 2025-08-23 | Outpatient (REF) | payer MEDICARE, MEDICAID ==
[~2025-08-23] MED LIST changes: +NITR-67 PO
[2025-08-23 09:15] LABS: PLATELET COUNT, AUTOMATED 337 10^3/uL (150-450)
[2025-08-23 09:38] LABS: CALCIUM LEVEL 9.2 MG/DL (8.5-10.1); CARBON DIOXIDE LEVEL 26.0 MMOL/L (20-31); CHLORIDE LEVEL 107.0 MMOL/L (98-107); CHOLESTEROL LEVEL 130.0 MG/DL (<200); CHOLESTEROL RISK RATIO 3.67 (<5); CREATININE FOR GFR 0.85 MG/DL (0.55-1.30); GLOMERULAR FILTRATION RATE 79.4 (>51); LDL CHOLESTEROL 57.0 MG/DL (<100); MAGNESIUM LEVEL 1.8 MG/DL (1.8-2.4); NON-HDL-C 94.6 MG/DL; POTASSIUM SERUM 4.3 MMOL/L (3.5-5.1); SODIUM LEVEL 144.0 MMOL/L (136-145); TRIGLYCERIDES LEVEL 188.0 MG/DL (<150)
== END ==
LOC: SKLAB4 07:00
PROVIDERS: ATTEND Family Medicine
DX: I10 Essential (primary) hypertension (principal); E83.42 Hypomagnesemia

== ENCOUNTER → 2025-09-03 | Outpatient (REF) | payer MEDICARE, MEDICAID ==
[2025-09-03 08:43] LABS: ESTIMATED AVERAGE GLUCOSE 117.0 MG/DL (60-110)
== END ==
LOC: SKLAB4 07:00
PROVIDERS: ATTEND Family Medicine
DX: E11.9 Type 2 diabetes mellitus without complications (principal)

== ENCOUNTER → 2025-10-02 | Outpatient (REF) ==
[2025-10-02 04:17] LABS: APPEARANCE, URINE HAZY (CLEAR); BACTERIA, URINE AUTO 1+ (NEGATIVE); BILIRUBIN, URINE AUTO NEGATIVE (NEGATIVE); BLOOD, URINE BLOOD NEGATIVE (NEGATIVE); GLUCOSE, URINE (UA) AUTO 3+ mg/dL (NEGATIVE); KETONE, URINE AUTO NEGATIVE (NEGATIVE); LEUKOCYTE ESTERASE, URINE AUTO 1+ (NEGATIVE); MUCUS, URINE SMALL (NEGATIVE); NITRITE, URINE AUTO NEGATIVE (NEGATIVE); PROTEIN, URINE AUTO 1+ mg/dL (NEGATIVE); RBC, URINE AUTO 1 /HPF (0-3); SPECIFIC GRAVITY URINE AUTO 1.027 (1.002-1.035); SQUAMOUS EPITHELIAL CELL UR AU 5 /HPF (0-6); UROBILINOGEN, URINE AUTO 0.2 mg/dL (0.0-2.0); WBC, URINE AUTO 4 /HPF (0-3)
== END ==
LOC: SKLAB4 02:25
PROVIDERS: ATTEND Nurse Practitioner Women's Health
DX: R30.0 Dysuria (principal)